=== PATIENT | male | born 1955 | race Caucasian/White ===

== ENCOUNTER 2019-09-04 09:06 | Day surgery (SDC) | payer MEDICARE ==
--- NOTE | 2019-09-03 14:02 | HP ---
HISTORY OF PRESENT ILLNESS: He is scheduled for an outpatient bronchoscopy tomorrow morning at 10 o'clock. A 64-year-old gentleman, 3 pack a day smoker for 40 years, quit smoking in 2014. He was diagnosed to have a malignant lymphoma in 2011, received chemotherapy with Dr. Ybrara, was in remission. About 2 months ago, started coughing up some blood. He went to a local clinic, was given a course of ProAir, albuterol neb treatments, Tessalon Perles, and dextromethorphan cough syrup. He then went to the ER with ongoing 10 [address] of [address]. [address] chest reveals left supra/infrahilar mass and left lower lobe atelectasis. His says he has not lost any weight. On a good day, he can walk a couple of hundreds feet without getting markedly short of breath. He sees a cost controller in [place], who told him he had COPD and asthma. PAST MEDICAL HISTORY: COPD, former smoker, malignant lymphoma under remission, COPD. PAST SURGICAL HISTORY: Hernia in 1967, tonsils in 1973, biopsy lymph node in 2011, chemo port in 2011, colonoscopy, laparoscopic surgery in 2019. ALLERGIES: NONE. HABITS: Tobacco, a former smoker. Alcohol, very minimal. REVIEW OF SYSTEMS: Otherwise unremarkable. 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 PHYSICAL EXAMINATION: VITAL SIGNS: Saturations 90% on room air, pulse 90, respirations 18, and blood pressure 130/80. No clubbing. CHEST: Decreased breath sounds in left lung. There is no wheezing or crackles. CARDIAC: Normal S1 and S2. No gallops. ABDOMEN: Soft. LABORATORY DATA:_ unremarkable. IMAGING STUDIES: I reviewed his CT from [facility] 2.7 x 3.3 x 3.3 left infrahilar mass and associated atelectasis. Left hilar adenopathy, mediastinal adenopathy. IMPRESSION AND PLAN: 1. Left lower lung mass, rule out bronchogenic carcinoma. 2. History of lymphoma. 3. Chronic obstructive pulmonary disease. A diagnostic will be bronchoscopy performed. Further recommendation after above. Job ID: [id number] MTDD
[2019-09-03 14:12] VITALS: BMI 28.5
[2019-09-04] MEDS ORDERED: Midazolam HCl 2 mg/2 ml Vial ONE ×2 (09:59→10:40)
[2019-09-04] MEDS ORDERED: Fentanyl 100 MCG/2 ML VIAL ONE ×2 (09:59→10:40)
[2019-09-04] MEDS ORDERED: Lidocaine 1% (PF) 30 ML VIAL ONE ×2 (10:07→10:15)
[2019-09-04] MEDS ORDERED: Lidocaine 2% PF 5 ML VIAL ONE (11:10)
[2019-09-04] MEDS ORDERED: Benzocaine 20% Spray 60 ML CAN ONE (11:19)
--- NOTE | 2019-09-05 09:06 | OP ---
DATE OF PROCEDURE: 09/04/2019 PROCEDURE PERFORMED: Bronchoscopy with biopsy. INDICATION: Left lower lung mass, rule out bronchogenic carcinoma. POSTBRONCHOSCOPY DIAGNOSIS: Left lower lung mass, rule out bronchogenic carcinoma. DESCRIPTION OF PROCEDURE: After informed consent, the patient received 4 mL of 4% lidocaine and DuoNeb prior to the procedure. The right nostril was prepped with 1% lidocaine jelly. During the procedure, he received a total of 3 of IV Versed and 75 mcg of IV fentanyl. The flexible Olympus video bronchoscope was then passed by the right nostril. Pharynx, hypopharynx, and vocal cord visualized which were unremarkable. Entering the trachea, this was normal. Ailyn was sharp. Right lung inspected initially. Right upper and right middle lobe, no endobronchial obstruction, blood, or pus. The left lung was inspected. After left upper lung was normal, left lower lobe, the bronchus was nodular friable. The right lower lobe bronchus, particularly the posterior segment was completely occluded with nodular friable mucosa. The apical and lateral segments were visualized. Area was nodular friable and bled to touch. This area was lavaged with normal saline thereafter. Brushings and biopsies from the mass were done multiple times. There was some brisk bleeding, which was controlled with instillation of epinephrine 1:[id number] of 10 mL. The biopsy was sent for histopathology. Brushing was sent for cytology. Washings were sent for cytology. The patient tolerated the procedure well. BRIEF DISCHARGE NOTE: The patient tolerated the procedure well. Results will be available to the patient and family. Further recommendation as above. Job ID: [id number]
== END 2019-09-04 12:25 | disposition home or self-care (01) ==
LOC: SDC 09:06
PROVIDERS: ATTEND Internal Medicine Pulmonary Disease
PROC: 0BBB8ZX Excision of Left Lower Lobe Bronchus, Via Natural or Artificial Opening Endoscopic, Diagnostic (ICD-10-PCS; principal; 2019-09-04)
DX: C34.32 Malignant neoplasm of lower lobe, left bronchus or lung (principal); J44.9 Chronic obstructive pulmonary disease, unspecified; Z87.891 Personal history of nicotine dependence
CPT/HCPCS: 88104; 88112; 88305; 88312; 88313; 88341; 88342; 99152; 99153; J2001; J2250; J3010; J7620

== ENCOUNTER 2019-09-06 11:07 | Outpatient (CLI) | payer MEDICARE ==
--- NOTE | 2019-09-07 10:12 | PET ---
Radionucleotide PET scan with CT attenuation correction HISTORY: Left lower lobe lung cancer. Remote history of lymphoma. FINDINGS: Physiologic uptake of radiotracer throughout the enteric system and along each urinary trac t. Left infrahilar mass and associated left hilar adenopathy show increased uptake maximum SUV 18.9. Abnormal precarinal lymph nodes maximum SUV 22.1. Subcarinal lymph nodes 21.0. Slightly enlarged right hilar lymph node 7.4. Uptake associated with a nonenlarged right axillary is nonhypermetabolic at 1.6. Small focus of increased uptake at the inferior aspect of the left scapular body 3.7. Small focus at the posterior aspect of the right iliac bone 3.2. Focal area of abnormality at the right inferior margin of the L1 vertebral body 8.5. Heterogeneous uptake noted within the right liver lobe without focal abnormality reliably demonstrate d Nondiagnostic CT attenuation correction images show suture row of the rectum. Calcification throughou t the arterial structures. IMPRESSION: Hypermetabolic left infrahilar lung mass with neoplastic involvement of mediastinal lymph nodes including the right hilum. Osseous metastatic foci of the left scapula, L1 vertebra, and right iliac bone. Atherosclerosis.
== END 2019-09-06 11:08 | disposition home or self-care (01) ==
LOC: PET 11:07
PROVIDERS: ATTEND Internal Medicine Hematology & Oncology
DX: C34.32 Malignant neoplasm of lower lobe, left bronchus or lung (principal); C77.1 Secondary and unspecified malignant neoplasm of intrathoracic lymph nodes; C79.51 Secondary malignant neoplasm of bone; I70.90 Unspecified atherosclerosis
CPT/HCPCS: 78815; A9552

== ENCOUNTER 2019-09-18 09:50 | Outpatient (CLI) | payer MEDICARE ==
--- NOTE | 2019-09-18 10:45 | MRI ---
Brain MRI with and without contrast: 09/18/2019 COMPARISON: None HISTORY: Lung cancer, headaches, assess for metastatic disease TECHNIQUE: Multiplanar multisequence MR imaging of the brain with and without contrast FINDINGS: The diffusion weighted imaging demonstrates no evidence for acute infarction and the axial gradient echo imaging demonstrates no evidence for intracranial hemorrhage. There are multiple scattered subcentimeter foci of increased T2 and FLAIR signal within the deep and subcortical white matter, evidence of small vessel disease. The imaged paranasal sinuses and mastoid air cells demonstrate normal signal intensity on T2-weighted imaging. Arterial flow voids appear patent at the axial level of the skull base. Regional bone marrow signal intensity appears within normal limits. Postcontrast imaging demonstrates no abnormal enhancement within the brain parenchyma. IMPRESSION: No MR evidence for intracranial metastatic disease.
== END 2019-09-18 09:51 | disposition home or self-care (01) ==
LOC: MRI 09:50
PROVIDERS: ATTEND Radiology Radiation Oncology
DX: C34.90 Malignant neoplasm of unspecified part of unspecified bronchus or lung (principal); C79.51 Secondary malignant neoplasm of bone; R51 Headache
CPT/HCPCS: 70553

== ENCOUNTER 2019-09-21 07:13 | Day surgery (SDC) | payer MEDICARE ==
[2019-09-20 16:03] VITALS: BMI 27.5
[2019-09-21] MEDS ORDERED: Midazolam HCl 2 mg/2 ml Vial ONE (07:33)
[2019-09-21] MEDS ORDERED: Fentanyl 100 MCG/2 ML VIAL ONE (07:33)
[2019-09-21] MEDS ORDERED: Bupivacaine HCl 0.5%/Epinephrine 1:200,000/PF 30 ml Vial ONE (07:37)
[2019-09-21] MEDS ORDERED: Lidocaine 2% PF 5 ML VIAL ONE (07:37)
[2019-09-21 07:52] LABS: #Eosinphils 0.2 thou/uL (0.0-0.7); #Lymphocytes 1.7 thou/uL (1.20-3.40); #Monocytes 0.7 thou/uL (0.11-0.59); #Neutrophils 9.7 thou/uL (1.40-6.50); %Basophils 0.2 % (0.0-1.0); %Eosinophils 1.3 % (0.0-10.0); %Monocytes 5.4 % (0.0-10.0); %Neutrophils 79.1 % (42.0-75.0); Hemoglobin 14.2 g/dL (14.0-18.0); Mean Corpuscular HGB CONC 32.6 g/dL (32.0-36.0); Mean Corpuscular Hemoglobin 29.5 pg (27.0-31.0); Mean Corpuscular Volume 90.5 fL (78.0-98.0); Mean Platelet Volume 8.9 fL (7.4-10.4); Platelet Count 273 thou/uL (130-400); RBC Distribution Width 12.1 % (11.5-14.5); Red Blood Cell (RBC) Count 4.81 mill/uL (4.70-6.10); White Blood Cell (WBC) Count 12.3 thou/uL (4.8-10.8)
[2019-09-21 08:04] LABS: Anion Gap 12 mmol/L (10-20); BUN (Urea Nitrogen) 11 mg/dL (8.4-25.7); Calc. Creatinine Clearance 117 mL/min (70-130); Calcium 9.8 mg/dL (7.8-10.44); Carbon Dioxide 24 mmol/L (23-31); Chloride 104 mmol/L (98-107); Estimated GFR-MDRD Greater than 90; Glucose 120 mg/dL (80-115); Potassium 4.3 mmol/L (3.5-5.1); Sodium 136 mmol/L (136-145)
[2019-09-21] MEDS ORDERED: Lidocaine 2% PF 100 mg/5 ml Syringe ONE (09:04)
[2019-09-21] MEDS ORDERED: Esmolol 100 MG/10 ML VIAL ONE (09:10)
[2019-09-21] MEDS ORDERED: Metoprolol Tartrate 5 MG/5 ML VIAL ONE (09:45)
--- NOTE | 2019-09-21 10:00 | RAD ---
XR Chest 1 View Portable HISTORY: New onset atrial fibrillation. Mediport placement COMPARISON: 09/06/2012 FINDINGS: There is a left subclavian Port-A-Cath with tip in the projection of the SVC. The heart siz e is normal. The lungs are well expanded without focal areas of consolidation, pneumothorax or pleural effusions. IMPRESSION: No radiographic evidence of acute cardiopulmonary process.
--- NOTE | 2019-09-21 12:04 | OP ---
DATE OF PROCEDURE: 09/21/2019 PREOPERATIVE DIAGNOSES: Metastatic squamous cell carcinoma, left lung and need of MediPort for antineoplastic chemotherapy access. POSTOPERATIVE DIAGNOSES: Metastatic squamous cell carcinoma, left lung and need of MediPort for antineoplastic chemotherapy access. PROCEDURE PERFORMED: Left subclavian vein low-profile PowerPort MediPort, fluoroscopy use. ANESTHESIA: General LMA, local 0.5% Marcaine with epinephrine 30 mL mixed with 2% Xylocaine 10 mL, 10 mL mixture used. DESCRIPTION OF PROCEDURE: The patient was taken to the operating room where under general LMA anesthesia, left chest and neck were prepared with ChloraPrep and draped in routine fashion. Local anesthetic was infiltrated in the skin and subcutaneous tissue about the operative site, trocar catheter cannulated the subclavian vein in infraclavicular approach. The J-wire threaded, trocar catheter was removed. Skin site was enlarged sharply, carried out skin and subcutaneous tissue and subcutaneous pocket created with blunt and sharp dissection to accommodate the MediPort. Dilator and Peel-Away sheath placed over the J-wire in superior vena cava and dilator and J-wire were removed. Catheter was placed over the Peel-Away sheath. Peel-Away sheath was removed. Fluoroscopically, the catheter tip was placed optimally in the superior vena cava, tailored to length, connected to the MediPort, placed in the subcutaneous pocket, and secured with 2 interrupted suture of 3-0 Prolene. Subcutaneous tissue was approximated with 3-0 Monocryl, skin with subdermal 4-0 Monocryl, and [place] glue applied. MediPort accessed with a Roman needle, aspirated blood, and then flushed with heparinized saline solution. Fluoroscopic images revealed good MediPort placement. Job ID: [id number]
--- NOTE | 2019-09-24 07:16 | HP ---
HISTORY OF PRESENT ILLNESS: Sabino Salinas is a 64-year-old male patient, recently diagnosed with metastatic left lung cancer, squamous cell carcinoma, followed by Dr. Ybarra. I have been asked to see him for placement of a MediPort. I placed a right subclavian MediPort in 2011 for lymphoma. He quit smoking in 2014. Plan is a left subclavian vein MediPort as he uses a shotgun occasionally and does not want it on his right side. ALLERGIES: NONE. TOBACCO CESSATION 2014. ALCOHOL RARELY. MEDICATIONS: Ventolin inhalers, promethazine, Tessalon Perles, Tylenol, and ibuprofen p.r.n. ALLERGIES: NONE. PAST SURGICAL HISTORY: Stage IV diffuse B-cell lymphoma treated in 2011 with right subclavian vein MediPort, subsequently removed. Left lung cancer, bypass surgeries, hernia repair, tonsillectomy. MediPort in 2011, right subclavian and subsequently removed in the office. Lymph node biopsy, colon resection in the past 09/03/2019. LABORATORY DATA: White count 8.2, hemoglobin 14, platelet 259,000. PAST MEDICAL HISTORY: As noted above plus urolithiasis. REVIEW OF SYSTEMS: Ten-point noncontributory. PHYSICAL EXAMINATION: VITAL SIGNS: Weight 203 pounds, height 6 foot, 27 BMI, blood pressure 110/71, pulse 97, temperature 97.2 degrees. HEAD, EARS, EYES, NOSE AND THROAT: Unremarkable. LUNGS: Clear to auscultation. No wheezing, although occasional coarse cough. CARDIAC: Regular rate and rhythm. ABDOMEN: Soft and nontender. EXTREMITIES: Unremarkable. ASSESSMENT AND PLAN: Left lung cancer, metastatic, scapula and spine. PLAN: Placement of a low-profile MediPort in the left subclavian vein outpatient under fluoroscopy. No ultrasound. He understands risks and benefits, consents. Job ID: [id number]
--- NOTE | 2019-09-25 10:28 | EKG ---
Test Reason : PREOP Blood Pressure : / mmHG Vent. Rate : 088 BPM Atrial Rate : 088 BPM P-R Int : 116 ms QRS Dur : 124 ms QT Int : 400 ms P-R-T Axes : 069 016 022 degrees QTc Int : 484 ms Normal sinus rhythm Right bundle branch block Abnormal ECG Confirmed by REBECA MCCLAIN MD ([id number]) on 09/25/2019 10:27:41 AM Referred By: GOPAL Confirmed By:REBECA MCCLAIN MD
--- NOTE | 2019-09-25 10:29 | EKG ---
Test Reason : POST OP Blood Pressure : / mmHG Vent. Rate : 137 BPM Atrial Rate : 136 BPM P-R Int : 000 ms QRS Dur : 124 ms QT Int : 342 ms P-R-T Axes : 000 028 -06 degrees QTc Int : 516 ms Atrial fibrillation with rapid ventricular response Right bundle branch block Abnormal ECG Confirmed by JOHNY FAULKNER, REBECA ([id number]) on 09/25/2019 10:28:45 AM Referred By: GOPAL Confirmed By:REBECA MCCLAIN MD
== END 2019-09-21 11:10 | disposition home or self-care (01) ==
LOC: SDC 07:13
PROVIDERS: ATTEND Specialist
PROC: 05H633Z Insertion of Infusion Device into Left Subclavian Vein, Percutaneous Approach (ICD-10-PCS; principal; 2019-09-21)
DX: C34.92 Malignant neoplasm of unspecified part of left bronchus or lung (principal); C79.51 Secondary malignant neoplasm of bone; Z87.891 Personal history of nicotine dependence
CPT/HCPCS: 36561; 71045; 80048; 85025; 93005; C1788; 36415; 93010; J0670; J0690; J1642; J2001; J2250; J3010

== ENCOUNTER 2019-10-03 23:21 | Inpatient (IN) | payer MEDICARE ==
--- NOTE | 2019-10-04 00:48 | PDOC.HHP ---
Hospitalist HPI - History of Present Illness L sided chest pain History of Present Illness: Patient is a 64 year old male with PMH COPD, recently diagnosed lung cancer who presents to [facility] for L sided chest pain. About 330pm yesterday, he developed a L sided chest pain and shortness of breath, did not improve with use of ventolin inhaler, self resolved after 5 hours. He reports sweating, describes pain as a constant ache without radiation, was also nauseous at that time. Patient had a stress test about 15 years ago that was reported as normal to patient, no reported history of any heart conditions. He had palpitaitons after anesthesia during port placement, he was told it "looked like" afib but was not given a formal diagnosis. Patient takes only ventolin inhaler PRN and over the counter pain meds, in addition to tessalon and zofran PRN symptoms. Patient reports before lung cancer diagnosis, he rarely had to use his inhaler at home but in last few weeks has needed to use more frequently, now needing q4- 6 hours. Patient was diagnosed with lung cancer 3-4 weeks ago via bronchoscopy, was told was NSCLC/squamous. Dr York is electronics tech and Dr Ybarra if patients oncologist. Patient has already had a port placed and started chemotherapy a week ago. Patient has strong family history of heart disease with father and brother dying of heart conditions. Hospitalist ROS - Review of Systems Constitutional: reports: sweats. denies: fever, chills Eyes: denies: vision change, redness ENT: denies: throat pain, throat swelling Respiratory: reports: cough, shortness of breath, pleuritic pain Cardiovascular: reports: chest pain. denies: palpitations Gastrointestinal: reports: nausea. denies: vomiting, diarrhea Genitourinary: denies: dysuria, frequency Musculoskeletal: denies: neck pain, shoulder pain, arm pain Skin: denies: rash, lesions Neurological: denies: weakness, numbness, incoordination, change in speech, seizures All other systems reviewed; all pertinent +/- noted in HPI/Subj Hospitalist History - Past Medical History Other Medical History: L sided lung cancer lymphoma 2011 (reports cured, Dr Ybarra) COPD - Past Surgical History Other Surgical History: hemicolectomy port placement bronchoscopy tonsils hernia - Family History Other Family History: heart disease in father and brother lung cancer grandfather mother DM - Social History Smoking Status: Former smoker (quit 2014) Alcohol: reports: None - Exam General Appearance: NAD, awake alert Eye: PERRL, anicteric sclera ENT: normocephalic atraumatic, no oropharyngeal lesions Neck: supple, symmetric, no JVD Heart: RRR, no murmur, no gallops Respiratory: no wheezes, no rales Respiratory - other findings: decreased breath sounds L sided Gastrointestinal: soft, non-tender, non-distended, normal bowel sounds Extremities: no cyanosis, no clubbing, no edema Skin: no lesions, no rashes Neurological: cranial nerve grossly intact, normal sensation to touch, no weakness, no focal deficits, no new deficit Musculoskeletal: normal tone, normal strength Psychiatric: normal affect, normal behavior, A&O x 3 Hospitalist Results - Labs Lab results: results reviewed from outside hospital. troponin 0.33 which is elevated Hospitalist H&P A/P - Problem (1) Chest pain Code(s): R07.9 - CHEST PAIN, UNSPECIFIED Status: Acute Assessment and Plan: pain has qualities that make it difficult to decide if this pain is primarily pulmonary or cardaic in nature. lung findings with obstructed broncus would put claudia at high risk for post obstructive pneumonia, however elevated troponin suggests cardiac in nature. will consult relevant specialists to include their input in the decision - admit to floor - consult dr York of pulmonology, Dr Ybarra oncology ([facility]) and Dr Shine of cardiology - trend troponin - empiric abx in case post obstructive pneumonia, will obtain pulmonology consultation tomorrow. vancomycin pharmacy to dose and zosyn ordered (2) Elevated troponin Code(s): R79.89 - OTHER SPECIFIED ABNORMAL FINDINGS OF BLOOD CHEMISTRY Status : Acute Assessment and Plan: perhaps suggest cardiac etiology ofchest pain, trend troponin and consult cardiology in AM (3) Lung cancer Code(s): C34.90 - MALIGNANT NEOPLASM OF UNSP PART OF UNSP BRONCHUS OR LUNG Status: Acute - Plan Plan: started chemotherapy, consult oncology and hold chemotherapy for now
[2019-10-04 01:41] LABS: CKMB 0.7 ng/mL (0-6.6)
[2019-10-04 04:05] VITALS: BMI 26.0
[2019-10-04 04:08] LABS: Critical Call Chem Troponin I RESULT DECREASING
[2019-10-04] MEDS ORDERED: Loperamide HCl 2 MG CAP PO PRN (04:45)
[2019-10-04] MEDS ORDERED: Senokot S 8.6-50 MG TAB PO PRN (04:45)
[2019-10-04] MEDS ORDERED: Ondansetron PF 4 MG/2 ML Vial IVP PRN (04:45)
[2019-10-04] MEDS ORDERED: Acetaminophen 325 MG TAB PO PRN (04:45)
[2019-10-04] MEDS ORDERED: Bisacodyl 5 MG TAB PO PRN (04:45)
[2019-10-04] MEDS ORDERED: HYDROcodone/Acetaminophen 5/325 mg Tablet PO PRN (04:45)
[2019-10-04] MEDS ORDERED: Benzonatate 100 MG CAP PO PRN (04:45)
[2019-10-04] MEDS ORDERED: Piperacillin/Tazobactam 3.375 GM in Sodium Chloride 0.9% 100 ML IVPB SCH (06:00)
[2019-10-04] MEDS: Piperacillin/Tazobactam 3.375 GM in Sodium Chloride 0.9% 100 ML IVPB SCH ×2 (07:31→12:51)
[2019-10-04 08:01] LABS: Troponin I 0.449 ng/mL (< 0.028)
[2019-10-04] MEDS: Enoxaparin Sodium 40 MG/0.4 ML SYRINGE SC SCH (09:24)
[2019-10-04] MEDS: Famotidine 20 MG TAB PO SCH ×2 (09:24→20:27)
[2019-10-04 11:03] LABS: Critical Call Chem Troponin I RESULT DECREASING; Troponin I 0.388 ng/mL (< 0.028)
--- NOTE | 2019-10-04 12:02 | CON ---
DATE OF CONSULTATION: REASON FOR CONSULT: Lung cancer. HISTORY OF PRESENT ILLNESS: Mr. Salinas is a pleasant 64-year-old gentleman with past medical history of diffuse large B-cell lymphoma, autoimmune hemolytic anemia, and newly diagnosed bronchogenic carcinoma. He started chemotherapy on September 25 for lung cancer. He received Keytruda, carboplatin and Taxol. Yesterday, he began to have some left chest pain. It was more an aching, worse with a deep breath. He started a neb treatment and became diaphoretic, so decision was made to go to the ER for evaluation. [facility] [place]. He had a CBC drawn, which was normal. Troponin was elevated at 0.33. He underwent a CT scan of the chest, which showed no PE. However, his lung mass was decreased in size compared to prior CT. He was transferred to this facility for further workup. Last troponin was 0.449. Cardiology has been consulted. The patient currently denies any chest discomfort. No shortness of breath at this time. PAST MEDICAL HISTORY: 1. History of diffuse large B-cell lymphoma. 2. Autoimmune hemolytic anemia. 3. Left squamous cell carcinoma, lung cancer. 4. Central tremor. PAST SURGICAL HISTORY: 1. Tonsillectomy. 2. Hernia repair. 3. MediPort placement. ALLERGIES: NO KNOWN DRUG ALLERGIES. HOME MEDICATIONS: Zofran, Tessalon Perles, albuterol, ProAir, and Ventolin. FAMILY HISTORY: Grandfather had lung cancer. There is a history of heart disease. SOCIAL HISTORY: , has 4 children. Lives with his spouse. A 30 pack year history of smoking. No alcohol or illicit drug use. REVIEW OF SYSTEMS: A 10-point review of systems is negative except for noted in HPI. PHYSICAL EXAMINATION: VITAL SIGNS: Temperature is 98.1, pulse is 95, respiratory rate 16, BP is 114/69 and he is 94% on room air. GENERAL: This is well-developed, well-nourished male, in no acute distress. HEENT: Normocephalic, atraumatic. Pupils are equal and reactive to light. NECK: Supple. CV: Regular rate and rhythm. LUNGS: Clear. ABDOMEN: Soft and nontender. Bowel sounds are positive. EXTREMITIES: There is no clubbing, cyanosis or edema. SKIN: No rash. HEMATOLOGICAL: There is no petechiae or purpura. NEUROLOGICAL: Nonfocal. PERTINENT LABS AND X-RAYS: CBC in the ER yesterday showed a white count of 5.3, hemoglobin 13, hematocrit 38.3, platelets 234,000. He has 67% neutrophils, 27% lymphocytes. His PT was 12.8, INR was 1.1, PTT is 33.4. Troponin is 0.33. Sodium is 132, potassium 4.8, chloride 96, CO2 is 26, BUN is 15, creatinine is 0.8. Total protein is 7.7, albumin 3.9, bilirubin is 0.8, AST is 22, ALT is 24, and alkaline phosphatase is 91. ASSESSMENT: 1. Squamous cell carcinoma of the lung, status post cycle 1 of chemotherapy. 2. Chest pain and possible non-ST elevation myocardial infarction. DISCUSSION: The patient is being evaluated by Cardiology. According to the CT scan at [facility], where he was originally scanned, this left lung mass has decreased in size. His chest pain was associated with breathing. It is possible that this is from his mass, although his troponins are elevated. He is due for additional Taxol on Tuesday. We will postpone if necessary. We will follow along with his hospital course and monitor his CBC. Thank you for the consult. Job ID: [id number]
[2019-10-04] MEDS ORDERED: Aspirin 81 mg Enteric Coated Tablet PO SCH (12:30)
--- NOTE | 2019-10-04 12:50 | RAD ---
Exam: Chest one view HISTORY:Chest pain Comparison: 09/21/2019 FINDINGS: Cardiac silhouette:Normal cardiac silhouette Lines and tubes: Stable left-sided Port-A-Cath Aorta: Unremarkable Pulmonary vessels: Normal Costophrenic angles: Clear LUNGS: No masses or consolidation. Pneumothorax: None Osseous abnormalities: None IMPRESSION: No acute cardiopulmonary process.
--- NOTE | 2019-10-04 13:19 | CON ---
DATE OF CONSULTATION: HISTORY OF PRESENT ILLNESS: Sabino Salinas is a 64-year-old white male with history of left lung non-small cell carcinoma. He was having hemoptysis prior to starting chemotherapy, but after 2 rounds, has not had any further episodes of hemoptysis. He presented to [facility] in [place] with chest pressure on the left side of his chest associated with shortness of breath and diaphoresis, but no nausea or vomiting. The patient states that the total duration of the pain was approximately 1 to 1-1/2 hours. He has developed positive cardiac enzymes. He is pain free at the present time. PAST MEDICAL HISTORY: Recently diagnosed left lung cancer - non-small cell. History of lymphoma. He denies any history of hypertension, diabetes, or hypercholesterolemia. PAST SURGICAL HISTORY: Hernia repair, tonsillectomy, lymph node biopsy in 2011 with diagnosis of lymphoma, colonoscopy, and laparoscopic surgery. MEDICATIONS: 1. Albuterol one puff q.4 hours p.r.n. 2. Tessalon Perles 1 to 2 capsules b.i.d. p.r.n. ALLERGIES: NONE. SOCIAL HISTORY: He smoked. He stopped smoking in 2014. He does not drink. FAMILY HISTORY: Father had myocardial infarction. Brother had myocardial infarction, at age 55. PHYSICAL EXAMINATION: VITAL SIGNS: Blood pressure 126/78 and pulse 78. HEENT: PERRL. NECK: Supple. CHEST: Clear. CARDIAC: S1 and S2 normal without any S3, S4, or murmurs. ABDOMEN: Normal bowel sounds without tenderness or organomegaly. EXTREMITIES: Revealed no clubbing, cyanosis, or edema. NEUROLOGIC: Grossly intact. SKIN: Warm and dry. LABORATORY DATA: EKG revealed normal sinus rhythm with incomplete right bundle-branch block. Hemoglobin 14.2, hematocrit 43.5, white count 12,300, platelets 273,000. Sodium 136, potassium 4.2, chloride 99, carbon dioxide 26, BUN 14, creatinine 0.73. Alkaline phosphatase 129 and LDH 275. TSH is normal. Troponin I is up to 0.449. IMPRESSION: 1. [id number] myocardial infarction. 2. Unknown cholesterol status. 3. Former smoker. 4. Non-small cell carcinoma of the left lung. He had hemoptysis with this, but he states that he has not had any further episodes for 1 week. He has received 2 rounds of chemotherapy. 5. Positive family history. 6. History of lymphoma. PLAN: Fasting lipid profile will be obtained. The patient will be started on aspirin 81 mg q.a.m. and low-dose beta isabela. Consideration should be given to cardiac catheterization; however, I am somewhat concerned about his recent history of hemoptysis and the need for anticoagulation if stent placement is required. We will continue to try to discuss this with Dr. Ybarra. I did discuss with the patient and his the risk of catheterization - myocardial infarction, dye reaction, vascular injury, CVA, transfusion, limb loss, renal loss, etc. We also discussed additional risk of stent placement of myocardial infarction, emergent CABG, restenosis, stent thrombosis, vessel perforation, etc. With history of hemoptysis and the need for ongoing chemotherapy, I would only place a bare- metal stent if needed. However, if there is concern for continued hemoptysis, then catheterization may need to be significantly delayed. Job ID: [id number] MTDD
[2019-10-04] MEDS ORDERED: guaiFENesin/Codeine Phosphate 200 mg/20 mg 10 ml UD Cup PO PRN (15:09)
[2019-10-04] MEDS ORDERED: Bisacodyl 5 MG TAB PO SCH (15:15)
--- NOTE | 2019-10-04 16:58 | CON ---
DATE OF CONSULTATION: HISTORY OF PRESENT ILLNESS: A 64-year-old male, seen by my associate, Dr. York, who diagnosed him with a left hilar lung cancer. He started therapy for this. He presented with chest discomfort. Subsequently, he was admitted to the hospital. He had no chest pain when I saw him today. He had abnormal cardiac enzymes. Cardiology has been consulted. He has no history of pre-existing COPD or hospitalizations for shortness of breath. He did have a lymphoma diagnosed in 2011. He is still in remission. PAST MEDICAL HISTORY: Hypertension, diabetes, and lipid disorder. PAST SURGICAL HISTORY: Remarkable for herniorrhaphy, tonsillectomy, and laparoscopic colon surgery. SOCIAL HISTORY: He quit smoking in 2014. He does not drink. ALLERGIES: HE HAS NO DRUG ALLERGIES. MEDICATIONS: Prior to admission, he had an albuterol inhaler and Tessalon Perles. FAMILY HISTORY: Positive for vascular disease. PHYSICAL EXAMINATION: VITAL SIGNS: He is afebrile, heart rate is 88, respiratory rate is 16, oximetry is 95% on room air, and blood pressure 114/69. HEAD AND NECK: Unremarkable. LUNGS: Clear. HEART: Regular rhythm, S1 and S2 are normal. No murmur. ABDOMEN: Soft and nontender. No masses. EXTREMITIES: Without clubbing, cyanosis, or edema. NEUROLOGIC: Nonfocal. IMPRESSION: Chest discomfort, felt to possibly be of cardiac origin. His troponins have been fairly consistent between 0.47 and 0.39 today. They have not risen over 1. Did have some hemoptysis, which I am sure is related to his lung cancer. There are concerns about anticoagulate him. I believe the plan is medical management. I will start him on nebulizer treatments and cough suppression since his main complaint now is just a cough. I will notify Dr. York of his presence in the morning. Job ID: [id number]
[2019-10-04] MEDS: guaiFENesin/Codeine Phosphate 200 mg/20 mg 10 ml UD Cup PO SCH ×2 (17:30→23:53)
[2019-10-04 18:48] LABS: Critical Call Chem Troponin I RESULT DECREASING; Troponin I 0.333 ng/mL (< 0.028)
[2019-10-04] MEDS: Amoxicillin/Potassium Clav 875 MG TAB PO SCH (20:27)
[2019-10-04] MEDS: Vancomycin HCl 1.25 GM in Sodium Chloride 0.9% 250 ML 250 ML IVPB SCH (20:27)
[2019-10-04] MEDS: Metoprolol Tartrate 25 MG TAB PO SCH (20:27)
--- NOTE | 2019-10-04 20:45 | PDOC.EVN ---
Event Note - Event Note Event Note: Patient seen examined. Doing ok. Heart regular. Lungs generally clear. Trops are elevated, but not following a physiologic upward trend. Possible the tumor is causing the chest pain. Patient seems to think so. Not significantly different than discomfort he has had. Consults with Cards, Pulm and Onc pending.
[2019-10-04] MEDS ORDERED: Diltiazem HCl 125 MG, Admixture Fee 1 EACH in Sodium Chloride 0.9% 100 ML IVPB SCH (21:30)
[2019-10-05 01:58] LABS: #Eosinphils 0.1 thou/uL (0.0-0.7); #Lymphocytes 1.6 thou/uL (1.20-3.40); #Monocytes 0.1 thou/uL (0.11-0.59); %Basophils 0.2 % (0.0-1.0); %Eosinophils 1.4 % (0.0-10.0); %Lymphocytes 32.9 % (21.0-51.0); %Monocytes 1.7 % (0.0-10.0); %Neutrophils 63.8 % (42.0-75.0); Hemoglobin 11.7 g/dL (14.0-18.0); Mean Corpuscular Hemoglobin 30.4 pg (27.0-31.0); Mean Corpuscular Volume 89.4 fL (78.0-98.0); Mean Platelet Volume 8.7 fL (7.4-10.4); Platelet Count 171 thou/uL (130-400); RBC Distribution Width 12.6 % (11.5-14.5); Red Blood Cell (RBC) Count 3.86 mill/uL (4.70-6.10); White Blood Cell (WBC) Count 4.7 thou/uL (4.8-10.8)
[2019-10-05 02:26] LABS: Anion Gap 10 mmol/L (10-20); BUN (Urea Nitrogen) 8 mg/dL (8.4-25.7); Calc. Creatinine Clearance 124 mL/min (70-130); Calcium 8.9 mg/dL (7.8-10.44); Carbon Dioxide 25 mmol/L (23-31); Chloride 107 mmol/L (98-107); Estimated GFR-MDRD Greater than 90; Glucose 98 mg/dL (80-115); Potassium 4.4 mmol/L (3.5-5.1); Sodium 138 mmol/L (136-145)
[2019-10-05 02:30] LABS: Troponin I 0.304 ng/mL (< 0.028)
[2019-10-05] MEDS: guaiFENesin/Codeine Phosphate 200 mg/20 mg 10 ml UD Cup PO SCH ×3 (05:47→16:57)
[2019-10-05] MEDS: Vancomycin HCl 1.25 GM in Sodium Chloride 0.9% 250 ML 250 ML IVPB SCH (08:32)
[2019-10-05] MEDS: Aspirin 81 mg Enteric Coated Tablet PO SCH (08:47)
[2019-10-05] MEDS: Polyethylene Glycol 3350 17 GM Packet PO SCH (08:47)
[2019-10-05] MEDS: Amoxicillin/Potassium Clav 875 MG TAB PO SCH ×2 (08:47→20:56)
[2019-10-05] MEDS: Enoxaparin Sodium 40 MG/0.4 ML SYRINGE SC SCH (08:47)
[2019-10-05] MEDS: Famotidine 20 MG TAB PO SCH ×2 (08:47→20:56)
[2019-10-05] MEDS: Metoprolol Tartrate 25 MG TAB PO SCH ×2 (08:48→20:56)
--- NOTE | 2019-10-05 09:33 | PRG ---
DATE OF SERVICE: 10/05/2019 SUBJECTIVE: This morning, he is doing better, less pain, less shortness of breath. His x-ray shows much improvement previously compared. He has a non-small cell lung cancer in the left lung. OBJECTIVE: VITAL SIGNS: Temperature 98, pulse 84, respirations 18, saturations 90% on room air. CHEST: No wheezing or crackles. CARDIAC: Atrial fibrillation. ABDOMEN: Soft. LABORATORY DATA: Labs unremarkable. ASSESSMENT: 1. Chest pain, probably musculoskeletal. 2. Supraventricular tachycardia. 3. Chronic obstructive pulmonary disease. 4. Tobacco abuse. 5. Non-small cell lung cancer. PLAN: Discontinue vancomycin. Continue Cardizem. Hopefully, once his cardiac rhythm is stabilized, he can be discharged home. Follow up with his oncologist. Incidentally, his EF was normal. Job ID: [id number]
[2019-10-05] MEDS ORDERED: Metoprolol Tartrate 25 MG TAB PO SCH (14:30)
--- NOTE | 2019-10-05 15:48 | PDOC.MOPN ---
Interval History: denies chest pain, palpitations, hemoptysis. - Vital Signs Vital Signs: Vital Signs (12 hours) Temp Pulse Resp BP Pulse Ox 10/05/19 15:00 98.3 F 84 16 112/65 94 L 10/05/19 13:20 77 16 94 L 10/05/19 11:10 97.5 F L 80 16 121/65 95 10/05/19 10:35 86 16 95 10/05/19 08:03 84 18 95 10/05/19 07:38 98.5 F 74 16 106/70 95 10/05/19 03:54 98.4 F 70 18 108/61 92 L Weight Weight 191 lb 1.6 oz - Physical Exam General: Alert, Oriented x3, No acute distress HEENT: Atraumatic, PERRLA, EOMI, Mucous membr. moist/pink Lungs: Clear to auscultation, Normal air movement Cardiovascular: Regular rate, Normal S1, Normal S2, No murmurs, Gallops, Rubs Abdomen: Normal bowel sounds, Soft, No tenderness, No hepatospenomegaly, No masses Extremities: No clubbing, No cyanosis, No edema, Normal pulses, No tenderness/ swelling Skin: No rashes, No breakdown, No significant lesion Neurological: Normal gait, Normal speech, Strength at 5/5 X4 ext, Normal tone, Sensation intact, Cranial nerves 3-12 NL, Reflexes 2+ Psych/Mental Status: Mental status NL, Mood NL - Labs Result Diagrams: 10/05/19 01:50 10/05/19 01:50 Lab results: Laboratory Results - last 24 hr 10/05/19 01:50: Troponin I 0.304 H* 10/05/19 01:50: WBC 4.7 L, RBC 3.86 L, Hgb 11.7 L, Hct 34.5 L, MCV 89.4, MCH 30.4, MCHC 34.0, RDW 12.6, Plt Count 171, MPV 8.7, Neutrophils % 63.8, Lymphocytes % 32.9, Monocytes % 1.7, Eosinophils % 1.4, Basophils % 0.2, Neutrophils # 3.0, Lymphocytes # 1.6, Monocytes # 0.1 L, Eosinophils # 0.1, Basophils # 0.0 10/05/19 01:50: Sodium 138, Potassium 4.4, Chloride 107, Carbon Dioxide 25, Anion Gap 10, BUN 8 L, Creatinine 0.72, Estimated GFR (MDRD) Greater than 90, Glucose 98, Calcium 8.9 10/04/19 18:06: Troponin I 0.333 H* Status: lab reviewed by me A/P - Problem (1) Lung cancer Current Visit: Yes Code(s): C34.90 - MALIGNANT NEOPLASM OF UNSP PART OF UNSP BRONCHUS OR LUNG Status: Acute - Plan Plan: Discussed with Dr. Shine, agree to defer cardiac cath due to issues with hemoptysis. Plan to continue chemoimmunotherapy treatment next week. OK to dc from my perspective.
--- NOTE | 2019-10-05 16:31 | PDOC.HOSPP ---
- Subjective Subjective: Doing ok. No significant pain. Still has some cough. - Objective Vital Signs & Weight: Vital Signs (12 hours) Temp Pulse Resp BP Pulse Ox 10/05/19 15:00 98.3 F 84 16 112/65 94 L 10/05/19 13:20 77 16 94 L 10/05/19 11:10 97.5 F L 80 16 121/65 95 10/05/19 10:35 86 16 95 10/05/19 08:03 84 18 95 10/05/19 07:38 98.5 F 74 16 106/70 95 Weight Weight 191 lb 1.6 oz I&O: 10/04/19 10/05/19 10/06/19 06:59 06:59 06:59 Intake Total 1200 1098.3 Output Total 1100 Balance 1200 -1.7 Result Diagrams: 10/05/19 01:50 10/05/19 01:50 Hospitalist ROS - Medication Medications: Active Medications Generic Name Dose Route Start Last Admin Trade Name Freq PRN Reason Stop Dose Admin Albuterol/Ipratropium 3 ml 10/05/19 13:00 10/05/19 13:20 Duoneb NEB 3 ml [id number] JOVI Administration Amoxicillin/Clavulanate Potassium 875 mg 10/04/19 21:00 10/05/19 08:47 Augmentin PO 875 mg Q12HR JOVI Administration Aspirin 81 mg 10/05/19 09:00 10/05/19 08:47 Ecotrin PO 81 mg DAILY JOVI Administration Benzonatate 100 mg 10/04/19 04:45 10/04/19 09:24 Tessalon PO 100 mg TID PRN Administration Cough Enoxaparin Sodium 40 mg 10/04/19 09:00 10/05/19 08:47 Lovenox SC 40 mg 0900 JOVI Administration Famotidine 20 mg 10/04/19 09:00 10/05/19 08:47 Pepcid PO 20 mg BID JOVI Administration Guaifenesin/Codeine Phosphate 10 ml 10/04/19 18:00 10/05/19 11:12 Robitussin Ac PO 10 ml Q6HR JOVI Administration Diltiazem HCl 125 mg/ 125 mls @ 5 mls/hr 10/04/19 21:30 10/04/19 21:57 Miscellaneous Medication 1 IVPB 125 mls each/ Sodium Chloride INF JOVI Administration Protocol Metoprolol Tartrate 12.5 mg 10/05/19 14:30 10/05/19 15:05 Lopressor PO 10/05/19 16:30 12.5 mg NOW JOVI Administration Ondansetron HCl 4 mg 10/04/19 04:45 10/04/19 20:30 Zofran IVP 4 mg Q6H PRN Administration Nausea/Vomiting Polyethylene Glycol 17 gm 10/05/19 09:00 10/05/19 08:47 Miralax PO 17 gm DAILY JOVI Administration Sodium Chloride 10 ml 10/04/19 09:00 10/05/19 10:23 Flush - Normal Saline IVF Not Given Q12HR JOVI - Exam General Appearance: NAD, awake alert Heart: RRR, no murmur, no gallops, no rubs, normal peripheral pulses Respiratory: CTAB, no wheezes, no rales, no ronchi, normal chest expansion, no tachypnea, normal percussion Gastrointestinal: soft, non-tender, non-distended, normal bowel sounds, no palpable masses, no hepatomegaly, no splenomegaly, no bruit Extremities: no cyanosis, no clubbing, no edema Skin: normal turgor, no lesions, no rashes Musculoskeletal: normal tone, normal strength, no muscle wasting Psychiatric: normal affect, normal behavior, A&O x 3 Hosp A/P (1) Atrial fibrillation Code(s): I48.91 - UNSPECIFIED ATRIAL FIBRILLATION Status: Acute (2) Chest pain Code(s): R07.9 - CHEST PAIN, UNSPECIFIED Status: Acute (3) Elevated troponin Code(s): R79.89 - OTHER SPECIFIED ABNORMAL FINDINGS OF BLOOD CHEMISTRY Status : Acute (4) Lung cancer Code(s): C34.90 - MALIGNANT NEOPLASM OF UNSP PART OF UNSP BRONCHUS OR LUNG Status: Acute - Plan Discussed with Cardiology. Had NSTEMI, but cath deferred due to hemoptysis that is related to the lung cancer. Had episode of asymptomatic afib last night, but anticoagulation deferred due to hemoptysis. Will continue with the beta isabela and monitor rhythm over night. May be able to DC tomorrow with po abx, beta isabela.
[2019-10-06] MEDS: guaiFENesin/Codeine Phosphate 200 mg/20 mg 10 ml UD Cup PO SCH ×5 (00:06→23:38)
[2019-10-06] MEDS: Diltiazem HCl 125 MG, Admixture Fee 1 EACH in Sodium Chloride 0.9% 100 ML IVPB SCH ×2 (04:06→16:40)
[2019-10-06] MEDS: Aspirin 81 mg Enteric Coated Tablet PO SCH (08:59)
[2019-10-06] MEDS: Amoxicillin/Potassium Clav 875 MG TAB PO SCH ×2 (08:59→20:26)
[2019-10-06] MEDS: Polyethylene Glycol 3350 17 GM Packet PO SCH (09:00)
[2019-10-06] MEDS: Famotidine 20 MG TAB PO SCH ×2 (09:00→20:26)
[2019-10-06] MEDS: Enoxaparin Sodium 40 MG/0.4 ML SYRINGE SC SCH (09:00)
[2019-10-06] MEDS: Metoprolol Tartrate 25 MG TAB PO SCH ×2 (09:00→20:26)
[2019-10-06] MEDS ORDERED: Digoxin 0.5 MG/2 ML AMP SLOW IVP SCH (14:30)
--- NOTE | 2019-10-06 14:45 | PDOC.HOSPP ---
- Subjective Encounter Date: 10/06/19 Encounter Time: 14:35 Subjective: f/u for A-fib RVR with restarting Cardizem gtt this am. Remains RVR on Cardizem 10mg/h IV. States feels ok overall with improvement in dyspnea. - Objective Vital Signs & Weight: Vital Signs (12 hours) Temp Pulse Resp BP Pulse Ox 10/06/19 12:47 80 16 96 10/06/19 12:20 98 F 97 18 103/63 97 10/06/19 07:56 97.4 F L 128 H 18 111/65 96 10/06/19 07:55 96 10/06/19 07:27 71 16 95 10/06/19 03:21 99.1 F 101 H 18 111/69 97 Weight Weight 190 lb 4.8 oz I&O: 10/05/19 10/06/19 10/07/19 06:59 06:59 06:59 Intake Total 1200 2778.3 Output Total 1700 Balance 1200 1078.3 Result Diagrams: 10/05/19 01:50 10/05/19 01:50 Additional Labs: Laboratory Tests 09/25/19 12:37 TSH 3rd Generation 0.7638 EKG Reviewed by me: Yes (Tele - A-fib RVR in 120's) Hospitalist ROS - Medication Medications: Active Medications Generic Name Dose Route Start Last Admin Trade Name Freq PRN Reason Stop Dose Admin Albuterol/Ipratropium 3 ml 10/05/19 13:00 10/06/19 12:47 Duoneb NEB 3 ml [id number] JOVI Administration Amoxicillin/Clavulanate Potassium 875 mg 10/04/19 21:00 10/06/19 08:59 Augmentin PO 875 mg Q12HR JOVI Administration Aspirin 81 mg 10/05/19 09:00 10/06/19 08:59 Ecotrin PO 81 mg DAILY JOVI Administration Benzonatate 100 mg 10/04/19 04:45 10/04/19 09:24 Tessalon PO 100 mg TID PRN Administration Cough Enoxaparin Sodium 40 mg 10/04/19 09:00 10/06/19 09:00 Lovenox SC 40 mg 0900 JOVI Administration Famotidine 20 mg 10/04/19 09:00 10/06/19 09:00 Pepcid PO 20 mg BID JOVI Administration Guaifenesin/Codeine Phosphate 10 ml 10/04/19 18:00 10/06/19 12:22 Robitussin Ac PO 10 ml Q6HR JOVI Administration Diltiazem HCl 125 mg/ 125 mls @ 10 mls/hr 10/06/19 04:00 10/06/19 04:06 Miscellaneous Medication 1 IVPB 125 mls each/ Sodium Chloride INF JOVI Administration Protocol Metoprolol Tartrate 25 mg 10/05/19 21:00 10/06/19 09:00 Lopressor PO 25 mg BID JOVI Administration Ondansetron HCl 4 mg 10/04/19 04:45 10/04/19 20:30 Zofran IVP 4 mg Q6H PRN Administration Nausea/Vomiting Polyethylene Glycol 17 gm 10/05/19 09:00 10/06/19 09:00 Miralax PO 17 gm DAILY JOVI Administration Sodium Chloride 10 ml 10/04/19 09:00 10/06/19 09:01 Flush - Normal Saline IVF 10 ml Q12HR JOVI Administration - Exam General Appearance: NAD, awake alert Eye: PERRL, anicteric sclera ENT: normocephalic atraumatic, no oropharyngeal lesions Neck: supple, symmetric, no JVD, no thyromegaly Heart: no rubs, normal peripheral pulses, irregular Heart - other findings: tachycardic Respiratory - other findings: diminished in bases, occ wheezes Gastrointestinal: soft, non-tender, non-distended, normal bowel sounds, no palpable masses Extremities: no cyanosis, no clubbing, no edema Skin: normal turgor, no lesions Neurological: cranial nerve grossly intact, no new deficit Musculoskeletal: normal tone, normal strength Psychiatric: normal affect, A&O x 3 Hosp A/P (1) Atrial fibrillation with RVR Code(s): I48.91 - UNSPECIFIED ATRIAL FIBRILLATION Status: Acute Plan: RVR persists, continue Cardizem gtt, Add Digoxin 0.25mg IVP x 1 now, continue Metoprolol, check Mg++ level in am, no anticoagulation due to hemoptysis (2) NSTEMI (non-ST elevated myocardial infarction) Code(s): I21.4 - NON-ST ELEVATION (NSTEMI) MYOCARDIAL INFARCTION Status: Acute Plan: Secondary to demand ischemia in context of A-fib RVR (3) Chest pain Code(s): R07.9 - CHEST PAIN, UNSPECIFIED Status: Acute Plan: Secondary to #1, ASA 81mg daily (4) Lung cancer Code(s): C34.90 - MALIGNANT NEOPLASM OF UNSP PART OF UNSP BRONCHUS OR LUNG Status: Acute Qualifiers: Laterality: left Plan: Currently receiving tx after chemotherapy, follow up as outpt - Plan plan discussed w/ family, social sciences research scientist, respiratory therapy, out of bed/ ambulate, DVT proph w/SCDs Stable currently Add Digoxin 0.25mg IV x 1 Continue Cardizem gtt Continue Metoprolol 25mg BID AM lab: Mg++
--- NOTE | 2019-10-06 18:05 | PDOC.CPN ---
- Subjective Date: 10/06/19 Time: 18:03 Interval history: He is doing better. He converted back to sinus rhythm earlier this afternoon. Continue to cough but no blood. - Review of Systems General: denies: fever/chills, weight/appetite/sleep changes, night sweats, fatigue Respiratory: reports: cough. denies: congestion, shortness of breath, exercise intolerance Cardiovascular: denies: chest pain, palpitation, edema, paroxysmal nocturnal dyspnea, orthopnea Gastrointestinal: denies: nausea, vomiting, diarrhea, constipation, abd pain, GI bleeding Musculoskeletal: denies: pain, tenderness, stiffness, swelling, arthritis/ arthralgias Neurological: denies: numbness, syncope, seizure, weakness - Objective Allergies/Adverse Reactions: Allergies Allergy/AdvReac Type Severity Reaction Status Date / Time No Known Allergies Allergy Verified 10/04/19 04:40 Visit Medications: Current Medications Acetaminophen (Tylenol) 650 mg PO Q4H PRN PRN Reason: Headache/Fever/Mild Pain (1-3) Hydrocodone Bitart/Acetaminophen ([place] 5/325) 1 tab PO Q4H PRN PRN Reason: Moderate Pain (4-6) Albuterol/Ipratropium (Duoneb) 3 ml NEB Q2H PRN PRN Reason: SOB &/or Wheezing Albuterol/Ipratropium (Duoneb) 3 ml NEB [id number] [facility] Last Admin: 10/06/19 12:47 Dose: 3 ml Amoxicillin/Clavulanate Potassium (Augmentin) 875 mg PO Q12HR [facility] Last Admin: 10/06/19 08:59 Dose: 875 mg Aspirin (Ecotrin) 81 mg PO DAILY [facility] Last Admin: 10/06/19 08:59 Dose: 81 mg Benzonatate (Tessalon) 100 mg PO TID PRN PRN Reason: Cough Last Admin: 10/04/19 09:24 Dose: 100 mg Bisacodyl (Dulcolax) 10 mg PO DAILYPRN PRN PRN Reason: Constipation Enoxaparin Sodium (Lovenox) 40 mg SC 0900 [facility] Last Admin: 10/06/19 09:00 Dose: 40 mg Famotidine (Pepcid) 20 mg PO BID [facility] Last Admin: 10/06/19 09:00 Dose: 20 mg Guaifenesin/Codeine Phosphate (Robitussin Ac) 10 ml PO Q6HR [facility] Last Admin: 10/06/19 12:22 Dose: 10 ml Guaifenesin/Codeine Phosphate (Robitussin Ac) 10 ml PO Q6H PRN PRN Reason: Cough Diltiazem HCl 125 mg/Miscellaneous Medication 1 each/ Sodium Chloride 125 mls @ 5 mls/hr IVPB INF [facility]; Protocol Last Admin: 10/06/19 16:40 Dose: 125 mls Loperamide HCl (Imodium) 2 mg PO PRN PRN PRN Reason: Diarrhea/Loose Stools Metoprolol Tartrate (Lopressor) 25 mg PO BID [facility] Last Admin: 10/06/19 09:00 Dose: 25 mg Ondansetron HCl (Zofran) 4 mg IVP Q6H PRN PRN Reason: Nausea/Vomiting Last Admin: 10/04/19 20:30 Dose: 4 mg Polyethylene Glycol (Miralax) 17 gm PO DAILY [facility] Last Admin: 10/06/19 09:00 Dose: 17 gm Senna/Docusate Sodium (Senokot S) 2 tab PO BID PRN PRN Reason: Constipation Sodium Chloride (Flush - Normal Saline) 10 ml IVF Q12HR [facility] Last Admin: 10/06/19 09:01 Dose: 10 ml Sodium Chloride (Flush - Normal Saline) 10 ml IVF PRN PRN PRN Reason: Saline Flush Vital Signs & Weight: Vital Signs Temp Pulse Resp BP Pulse Ox 10/06/19 16:04 98.5 F 77 20 105/57 L 95 10/06/19 15:10 125 H 10/06/19 12:47 80 16 96 10/06/19 12:20 98 F 97 18 103/63 97 10/06/19 07:56 97.4 F L 128 H 18 111/65 96 10/06/19 07:55 96 10/06/19 07:27 71 16 95 Weight 190 lb 4.8 oz - Physical Exam General: alert & oriented x3, no apparent distress HEENT: mucus membranes moist Neck: supple neck, midline trachea Cardiac: regular rate and rhythm Lungs: clear to auscultation Neuro: grossly intact Abdomen: active bowel sounds, soft, non-tender Extremities: no edema Skin: clear Musculoskeletal: no pain - Labs Result Diagrams: 10/05/19 01:50 10/05/19 01:50 Troponin/CKMB CK-MB (CK-2) 0.7 ng/mL (0-6.6) 10/04/19 00:41 Troponin I 0.304 ng/mL (< 0.028) H* 10/05/19 01:50 - Telemetry Sinus rhythms and dysrhythmias: sinus rhythm Supraventricular conduction: atrial fibrillation - Assessment/Plan Assessment/Plan: 1. Paroxysmal afib 2. Non-small cell Lung Ca 3. NSTEMI, Type 2 demand ischemia 4. Hemoptysis PLAN; - Back in sinus for now. - Will stop diltiazem drip tomorrow morning and will continue home dose of PO BB. - Aspirin alone for stroke prophylaxis due to hemoptysis.
--- NOTE | 2019-10-06 19:00 | PRG ---
DATE OF SERVICE: 10/06/2019 SERVICE: Pulmonary Medicine. INTERVAL HISTORY: The patient is doing outstanding from respiratory standpoint. Breathing comfortably. He has no complaints of chest discomfort, fevers, chills, nausea, or vomiting. Otherwise, he is breathing comfortably. He has returned to sinus rhythm. He has no complaints otherwise. He has been weaned down to room air, and his dyspnea on exertion has completely resolved. PHYSICAL EXAMINATION: VITAL SIGNS: Afebrile, pulse 77, blood pressure 105/57, respirations 20, saturation 95% on room air. GENERAL: The patient is awake and alert, in no apparent distress. LUNGS: Very good air entry. There is a slightly prolonged expiratory phase, but no wheezing or rhonchi are appreciated. HEART: Normal rate and regular. ABDOMEN: Soft, nontender, nondistended. Bowel sounds are positive. MUSCULOSKELETAL: No cyanosis or clubbing. There is no pitting in the bilateral lower extremities. NEUROLOGIC: Grossly nonfocal. LABORATORY DATA: Troponin is downtrending to 0.304. ASSESSMENT: 1. Atrial fibrillation with rapid ventricular rate, paroxysmal, returned to sinus rhythm. 2. Non-small cell lung cancer. 3. Hemoptysis. DISCUSSION AND PLAN: The patient has returned to his baseline from respiratory standpoint. From a pure lung standpoint, there is nothing that prevents his discharge. Antibiotics and steroids can be limited to a 5-day course. Pulmonary will follow intermittently during this hospital stay. If he gets into trouble over the weekend, give me a phone call. Otherwise, Dr. York will resume care on Tuesday. Job ID: [id number]
[2019-10-07] MEDS: guaiFENesin/Codeine Phosphate 200 mg/20 mg 10 ml UD Cup PO SCH ×3 (05:18→17:49)
[2019-10-07] MEDS: Aspirin 81 mg Enteric Coated Tablet PO SCH (08:46)
[2019-10-07] MEDS: Amoxicillin/Potassium Clav 875 MG TAB PO SCH ×2 (08:46→19:57)
[2019-10-07] MEDS: Famotidine 20 MG TAB PO SCH ×2 (08:46→19:58)
[2019-10-07] MEDS: Metoprolol Tartrate 25 MG TAB PO SCH (08:47)
[2019-10-07] MEDS: Polyethylene Glycol 3350 17 GM Packet PO SCH (08:47)
[2019-10-07] MEDS: Enoxaparin Sodium 40 MG/0.4 ML SYRINGE SC SCH (08:47)
[2019-10-07] MEDS ORDERED: Diltiazem 125 MG in Sodium Chloride 0.9% 100 ML IVPB SCH (10:00)
[2019-10-07] MEDS ORDERED: Metoprolol Tartrate 25 MG TAB PO SCH (11:15)
[2019-10-07 16:11] VITALS: TEMP 97.4
--- NOTE | 2019-10-07 18:38 | PDOC.CPN ---
- Subjective Date: 10/07/19 Time: 18:37 Interval history: He went back into afib RVR this morning and we increased his metoprolol PO and he went back into sinus fairly quickly. He was asymptomatic. - Review of Systems General: denies: fever/chills, weight/appetite/sleep changes, night sweats, fatigue Respiratory: denies: cough, congestion, shortness of breath, exercise intolerance Cardiovascular: denies: chest pain, palpitation, edema, paroxysmal nocturnal dyspnea, orthopnea Gastrointestinal: denies: nausea, vomiting, diarrhea, constipation, abd pain, GI bleeding Musculoskeletal: denies: pain, tenderness, stiffness, swelling, arthritis/ arthralgias Neurological: denies: numbness, syncope, seizure, weakness - Objective Allergies/Adverse Reactions: Allergies Allergy/AdvReac Type Severity Reaction Status Date / Time No Known Allergies Allergy Verified 10/04/19 04:40 Visit Medications: Current Medications Acetaminophen (Tylenol) 650 mg PO Q4H PRN PRN Reason: Headache/Fever/Mild Pain (1-3) Hydrocodone Bitart/Acetaminophen ([place] 5/325) 1 tab PO Q4H PRN PRN Reason: Moderate Pain (4-6) Albuterol/Ipratropium (Duoneb) 3 ml NEB Q2H PRN PRN Reason: SOB &/or Wheezing Albuterol/Ipratropium (Duoneb) 3 ml NEB [id number] [facility] Last Admin: 10/07/19 12:47 Dose: 3 ml Amoxicillin/Clavulanate Potassium (Augmentin) 875 mg PO Q12HR [facility] Last Admin: 10/07/19 08:46 Dose: 875 mg Aspirin (Ecotrin) 81 mg PO DAILY [facility] Last Admin: 10/07/19 08:46 Dose: 81 mg Benzonatate (Tessalon) 100 mg PO TID PRN PRN Reason: Cough Last Admin: 10/04/19 09:24 Dose: 100 mg Bisacodyl (Dulcolax) 10 mg PO DAILYPRN PRN PRN Reason: Constipation Famotidine (Pepcid) 20 mg PO BID [facility] Last Admin: 10/07/19 08:46 Dose: 20 mg Guaifenesin/Codeine Phosphate (Robitussin Ac) 10 ml PO Q6HR [facility] Last Admin: 10/07/19 17:49 Dose: Not Given Guaifenesin/Codeine Phosphate (Robitussin Ac) 10 ml PO Q6H PRN PRN Reason: Cough Loperamide HCl (Imodium) 2 mg PO PRN PRN PRN Reason: Diarrhea/Loose Stools Metoprolol Tartrate (Lopressor) 50 mg PO BID [facility] Ondansetron HCl (Zofran) 4 mg IVP Q6H PRN PRN Reason: Nausea/Vomiting Last Admin: 10/04/19 20:30 Dose: 4 mg Polyethylene Glycol (Miralax) 17 gm PO DAILY [facility] Last Admin: 10/07/19 08:47 Dose: 17 gm Senna/Docusate Sodium (Senokot S) 2 tab PO BID PRN PRN Reason: Constipation Sodium Chloride (Flush - Normal Saline) 10 ml IVF Q12HR [facility] Last Admin: 10/07/19 08:47 Dose: Not Given Sodium Chloride (Flush - Normal Saline) 10 ml IVF PRN PRN PRN Reason: Saline Flush Vital Signs & Weight: Vital Signs Temp Pulse Resp BP Pulse Ox 10/07/19 16:00 97.4 F L 80 31 H 116/58 L 96 10/07/19 12:47 72 16 95 10/07/19 11:59 98.2 F 72 19 117/56 L 96 10/07/19 08:37 98.4 F 85 16 123/64 93 L 10/07/19 08:00 93 L 10/07/19 07:21 77 16 100 Weight 190 lb 4.8 oz - Physical Exam General: alert & oriented x3 HEENT: mucus membranes moist Neck: supple neck Cardiac: regular rate and rhythm Lungs: clear to auscultation Neuro: grossly intact Abdomen: active bowel sounds Extremities: no edema Skin: clear Musculoskeletal: no pain - Labs Result Diagrams: 10/05/19 01:50 10/05/19 01:50 Troponin/CKMB CK-MB (CK-2) 0.7 ng/mL (0-6.6) 10/04/19 00:41 Troponin I 0.304 ng/mL (< 0.028) H* 10/05/19 01:50 - Telemetry Sinus rhythms and dysrhythmias: sinus rhythm Supraventricular conduction: atrial fibrillation - Assessment/Plan Assessment/Plan: 1. Paroxysmal afib 2. Non-small cell Lung Ca 3. NSTEMI, Type 2 demand ischemia 4. Hemoptysis PLAN; - Back in sinus for now. - Increased dose of BB. If he continue to have episodes of afib he may need addition of an anti arrhythmic. - Aspirin alone for stroke prophylaxis due to hemoptysis.
[2019-10-07 19:40] VITALS: BP 141/80
[2019-10-07] MEDS ORDERED: Metoprolol Tartrate 50 MG TAB PO SCH (21:00)
--- NOTE | 2019-10-08 12:23 | DIS ---
DATE OF ADMISSION: 10/04/2019 DATE OF DISCHARGE: 10/07/2019 DISCHARGE DISPOSITION: Home. FOLLOWUP: 1. Follow up with primary care physician in 1 week. 2. Follow up with Dr. Shine as scheduled. ALLERGIES: NO KNOWN DRUG ALLERGIES. DISCHARGE MEDICATIONS: 1. Augmentin 875 mg twice daily for next 5 days. 2. Aspirin 81 mg daily. 3. Lopressor 50 mg b.i.d. 4. Zofran as needed. 5. Tessalon Perles as needed. 6. Albuterol inhaler as needed. INPATIENT TELEVISION [place] DIRECTOR: Oncology Service/Cardiology Service/Pulmonary Service. BRIEF HOSPITAL COURSE: The patient is a 64-year-old male with COPD with recently diagnosed lung cancer, presented to the hospital with chest discomfort. Please refer to the history and physical dated October 04, 2019, for further details. The patient was admitted to the telemetry unit with a diagnosis of chest discomfort. He was evaluated by Cardiology. He underwent echocardiogram that showed ejection fraction 55% to 60% with mild mitral regurgitation, mild tricuspid regurgitation and diastolic dysfunction. Troponin maximum was 0.470. The patient developed atrial fibrillation with rapid ventricular response, requiring Cardizem drip. The patient spontaneously converted to sinus rhythm. He has been started on aspirin for stroke prophylaxis due to hemoptysis. He was also evaluated by Oncology and Pulmonary service due to history of lung cancer with hemoptysis. He did not have any recurrence of hemoptysis. He has been cleared by consultants for discharge. FINAL DIAGNOSES: 1. Chest discomfort. 2. Paroxysmal atrial fibrillation with rapid ventricular response. 3. Type 2 myocardial infarction. 4. Hemoptysis due to history of lung cancer. 5. Former smoker. 6. Positive family history. 7. History of lymphoma. 8. Chronic anemia. 9. Chronic diastolic heart failure. 10. Mild tricuspid regurgitation, mild mitral regurgitation. PLAN: Plan of care was discussed with the patient in detail. He stated understanding. Job ID: [id number]
--- NOTE | 2019-10-10 07:07 | PQF ---
SAP Composition Floor Layer Crystal Reports Winform ViewerMICHAEL HAZEL SUSANNE FREDERICK MD [id number] [id number] CLINICAL DOCUMENTATION CLARIFICATION FORM: POST DISCHARGE Addendum to original discharge summary date: ____ Late entry note date: __ DATE: 10/10/2019 ATTN: SUSANNE FREDERICK MD Please exercise your independent, professional judgment in responding to the clarification form. Clinical indicators are provided on the bottom of this form for your review Please check appropriate box(s): [ ] Chest pain due to Lung cancer [ ] Chest pain due to Supraventricular tachycardia [ ] Chest pain due to Chronic diastolic CHF [ x ] Chest pain Unknown Etilology [ ] Other diagnosis [ ] Unable to determine In addition, please specify: Present on Admission (POA): [ ] Yes [ ] No [ ] Unable to determine For continuity of documentation, please document condition throughout progress notes and discharge summary. Thank You. CLINICAL INDICATORS - SIGNS / SYMPTOMS /LABS Difficult to decide if pain is primarily pulmonary or cardiac in nature - Documented in H&P on 10/04 by Adonis Ralph MD Elevated suggest cardiac in nature - Documented in H&P on 10/04 by Adonis Ralph MD Possibly the tumor causing the chest pain - Documented in Event note on 10/04 by Rasheed Choi left lung mass decreased in size his chest pain was associated with breathing, it is possible that this is from mass although his troponin are elevated - Documented in Consult report on 10/04 by Josr West Chest discomfort felt possibly be of cardiac origin - Documented in Consult note on 10/04 by Krzysztof Ortiz MD troponin consistent b/w 0.47 and 0.39 today - Documented in Consult note on by Krzysztof Ortiz MD RISK FACTORS Lung cancer NSTEMI Supraventricular tachycardia - Documented in PNs on 10/05 by Jaylen Shaw Chronic diastolic CHF TREATMENTS: Consult pulmonology CT chest started aspirin 81 mg and low dose beta isabela- Documented in Consult note on 10/04 by Rl Dowell Discontinue vancomycin, continue Cardizem once cardiac rhythm is stabilized he can be discharged home - Documented in PNs on 10/05 by Jaylen Shaw (This form is maintained as a part of the permanent medical record) 2014 [employer]. All Rights Reserved [email or web address] [not provided] MTDD
== END 2019-10-07 20:34 | disposition home or self-care (01) | DRG 281 ==
LOC: ERS 23:21 → 2NO 10-04 00:30
PROVIDERS: ADMIT Internal Medicine; ATTEND Internal Medicine
DX: R07.9 Chest pain, unspecified (principal); I21.A1 Myocardial infarction type 2; C34.92 Malignant neoplasm of unspecified part of left bronchus or lung; I47.1 Supraventricular tachycardia; R04.2 Hemoptysis; I50.32 Chronic diastolic (congestive) heart failure; D59.1 Other autoimmune hemolytic anemias; J44.9 Chronic obstructive pulmonary disease, unspecified; I48.0 Paroxysmal atrial fibrillation; I34.0 Nonrheumatic mitral (valve) insufficiency; I07.1 Rheumatic tricuspid insufficiency; Z90.49 Acquired absence of other specified parts of digestive tract; Z87.891 Personal history of nicotine dependence; Z90.89 Acquired absence of other organs; Z79.899 Other long term (current) drug therapy
CPT/HCPCS: 36415; 71045; 80048; 80061; 82553; 83735; 84484; 85025; 93005; 93306; 93798; 94640; 94760; J1160; J1650; J2405; J2543; J3370; J3490; J7050; J7620

== ENCOUNTER 2019-11-23 09:11 | Outpatient (CLI) | payer MEDICARE ==
--- NOTE | 2019-11-23 10:28 | CT ---
CHEST CT WITH CONTRAST: HISTORY: Lung cancer. COMPARISON: CT pulmonary scan 09/02/2016. CORRELATION: PET imaging 09/06/2019. TECHNIQUE: Postcontrast chest CT is performed in the axial plane. FINDINGS: Lower neck and axilla: No masses or lymphadenopathy. Visualized thyroid gland is unremarkable. Mediastinum: Abnormal soft tissue density in the prevascular space, likely representing a conglomerat ion of lymph nodes measuring 2.5 x 1.1 cm. There is abnormal hypoattenuation in the subcarinal region with punctate calcifications, measuring 3.6 x 1.2 cm. There is abnormal soft tissue attenuatio n involving the left mainstem bronchus. There appears to be narrowing of the central bronchial involving the left lower lobe. Small air channel suggesting component of patency is still noted. Upper abdomen: Visualized upper solid abdominal viscera is grossly unremarkable. A right renal cyst i s noted. Osseous structures: There are no lytic or blastic lesions in the osseous structures. Pleural spaces: No pleural effusion. No pneumothorax. Right lung: Patchy groundglass opacities. No suspicious masses or consolidation. No suspicious lung n odules. Left lung: Minimal alveolar opacities involving the left upper lobe. There are multifocal alveolar op acities involving the left lower lobe. Dense consolidation noted in the left lower lobe on the recent CT used for attenuation correction from a PET scan on 09/06/2019 is less evident. These areas of alveolar opacification may represent atypical infection/inflammation. There does appear to be multifocal peribronchial thickening. The constellation of findings support an infectious or inflammat ory process. However, peribronchial spread of tumor cannot be entirely excluded. IMPRESSION: 1. Interval resolution of previously noted dense consolidation in the left lower lobe. There is perib ronchial thickening with alveolar opacities which may represent infection/inflammation. Spread of tumor cannot be entirely excluded. 2. Abnormal soft tissue density noted in the mediastinum as described above which may represent resid ual lymphadenopathy. There is evidence of significant mediastinal lymphadenopathy noted on recent PET imaging. When using the previous attenuation correction CT, the degree of lymphadenopathy has dec reased. Transcribed Date/Time: 11/23/2019 10:41 AM
== END 2019-11-23 09:12 | disposition home or self-care (01) ==
LOC: BICCT 09:11
PROVIDERS: ATTEND Internal Medicine Hematology & Oncology
DX: C34.32 Malignant neoplasm of lower lobe, left bronchus or lung (principal); C83.38 Diffuse large B-cell lymphoma, lymph nodes of multiple sites; R91.8 Other nonspecific abnormal finding of lung field
CPT/HCPCS: 71260

== ENCOUNTER 2020-02-02 16:05 | Inpatient (IN) | payer MEDICARE ==
[2020-02-02] MEDS ORDERED: Diltiazem 125 MG/25 ML ONE (17:10)
[2020-02-02 17:21] LABS: Hemoglobin 13.4 g/dL (14.0-18.0); Mean Corpuscular HGB CONC 33.2 g/dL (32.0-36.0); Mean Corpuscular Hemoglobin 34.5 pg (27.0-31.0); Mean Platelet Volume 9.3 fL (7.4-10.4); Platelet Count 359 thou/uL (130-400); RBC Distribution Width 17.9 % (11.5-14.5); Red Blood Cell (RBC) Count 3.89 mill/uL (4.70-6.10); White Blood Cell (WBC) Count 21.7 thou/uL (4.8-10.8)
[2020-02-02 17:33] LABS: Anisocytosis SLIGHT = 6-15 cells (100X) (0-5/hpf); Band 5 % (5-11); Lymphocytes 4 % (21-51); MDiff Complete? YES; Macrocytosis SLIGHT = 6-15 cells (100X) (0-5/hpf); Monocytes 3 % (0-10); Neutrophil 88 % (42-75); Platelet Morphology Comment Appears Adequate; Polychromasia SLIGHT = 2-3 cells (100X) (0-2/hpf)
[2020-02-02 17:46] LABS: ALT (SGPT) 137 U/L (8-55); AST (SGOT) 236 U/L (5-34); Albumin 2.8 g/dL (3.4-4.8); Alkaline Phosphatase 969 U/L (40-110); Anion Gap 20 mmol/L (10-20); BUN (Urea Nitrogen) 24 mg/dL (8.4-25.7); Bilirubin, Total 6.5 mg/dL (0.2-1.2); Calc. Creatinine Clearance 0 mL/min (70-130); Calcium 10.3 mg/dL (7.8-10.44); Carbon Dioxide 18 mmol/L (23-31); Chloride 94 mmol/L (98-107); Estimated GFR-MDRD 88; Globulin 4.2 g/dL (2.4-3.5); Glucose 73 mg/dL (80-115); Potassium 5.6 mmol/L (3.5-5.1); Sodium 126 mmol/L (136-145)
--- NOTE | 2020-02-02 17:47 | RAD ---
Chest AP view INDICATION: History of lung cancer with dizziness COMPARISON: CT of the thorax dated November 23, 2019 FINDINGS: Lungs: There is airspace consolidation within the retrocardiac left lower lobe. There is scattered e mphysema. Cardiac silhouette: The cardiomediastinal silhouette appears within normal limits. Pulmonary vasculature: Normal Pleural spaces: No pleural effusion or pneumothorax is demonstrated. Upper abdomen: No abnormality seen. Osseous structures: No acute osseous abnormality. Additional findings: There is a stable left subclavian chest wall port. IMPRESSION: New airspace consolidation in the retrocardiac left lower lobe suspicious for pneumonia. Recommend ra diographic follow-up to resolution. Stable emphysema. Stable left subclavian chest wall port.
[2020-02-02 18:04] LABS: CKMB 1.9 ng/mL (0-6.6)
[2020-02-02] MEDS ORDERED: Azithromycin 500 MG VIAL ONE (18:12)
[2020-02-02] MEDS ORDERED: cefTRIAXone\\ROCEPHIN 1 GM VIAL ONE (18:12)
[2020-02-02] MEDS ORDERED: Sodium Chloride 0.9% 100 ML ONE (18:13)
[2020-02-02] MEDS ORDERED: Fentanyl 100 MCG/2 ML VIAL ONE (18:34)
--- NOTE | 2020-02-02 19:07 | ULT ---
RIGHT UPPER QUADRANT ULTRASOUND CLINICAL HISTORY: Right upper quadrant pain. COMPARISON: CT the thorax dated November 23, 2019 FINDINGS: Liver:The liver is enlarged measuring 23 cm. There is cirrhotic morphology of the liver. There is dif fuse heterogeneity of the liver. Scattered rounded hypoechogenicities are present within the liver some which may reflect regenerative-type nodules. Intrahepatic bile ducts: No intrahepatic or extrahepatic biliary dilation.; Common bile duct: 4.6 mm. Gallbladder: There is a mildly prominent gallbladder fold versus a gallbladder polyp present within t he inferior gallbladder body measuring 8 mm in size. No intraluminal stones are identified. There is mild gallbladder wall thickening which may be related to the patient's cirrhosis. There is mild as cites. Ontiveros's sign:None Main portal vein:Patent with hepatopedal flow. Pancreas:Visualized pancreas appears normal. Right kidney: Right kidney measures 11.6 x 4.5 x 5.5 cm cm. No focal renal lesion or hydronephrosis. Additional findings: None. IMPRESSION: Hepatomegaly with diffuse heterogeneity of the liver suspicious for underlying cirrhosis. Rounded alexys earing hypoechogenicities within the liver are nonspecific and may reflect regenerative nodules related to cirrhosis or possibly hepatic metastatic disease. Follow-up CT of the abdomen utilizing a liver mass protocol would be helpful for additional characterization. Mildly prominent gallbladder fold versus small gallbladder polyp. Mild ascites
[2020-02-02] MEDS ORDERED: Ondansetron PF 4 MG/2 ML Vial IVP PRN (19:38)
[2020-02-02] MEDS ORDERED: Diltiazem 125 MG in Sodium Chloride 0.9% 100 ML IVPB SCH (19:45)
--- NOTE | 2020-02-02 20:09 | PDOC.EVN ---
Event Note - Event Note Event Note: called by RN for pulse into 170's with transfer to bed and while sitting up bp 80's systolic. In bed HR is fluctuating from 100-150's and bp is 100's systolic. Requested that IVF begin that were ordered in ER and 10 mg IV diltiazem now and increase gtt to 10 mg/hr. Heart rate then increased to 170's -180's and maintained for a few minutes. Called for guidance from Dr Ortiz - and while environmental services lead pt converted to NSR. Recommendation to start amio gtt without bolus. Discussed plan of care with patient and family, and d/c diltiazem 10 mg IV order.
[2020-02-02] MEDS ORDERED: Metoclopramide HCl 10 MG/2 ML VIAL IVP PRN (20:13)
[2020-02-02] MEDS: Sodium Chloride 0.9% 1,000 ML IV SCH (20:24)
[2020-02-02] MEDS: Metoprolol Tartrate 50 MG TAB PO SCH (20:24)
--- NOTE | 2020-02-02 20:30 | HP ---
CHIEF COMPLAINT: Extreme fatigue. HISTORY OF PRESENT ILLNESS: This is a 65-year-old male with history of lung cancer and last chemotherapy 3 weeks ago, followed by Dr. Ybarra of Oncology; paroxysmal atrial fibrillation; COPD; history of lymphoma, in remission; who presents to the emergency room with the above complaint. The patient reports that this has been ongoing for a few weeks with associated shortness of breath, weakness, and falls. He states that he was tired of feeling so fatigued, and today that he could not get up and down. He also reports frequent voiding with dark urine. History is obtained from the patient and his . They report he was in the emergency room in [place] 2 days ago for severe dehydration , low magnesium. There, he was found to have pneumonia, started on Cipro. He received IV fluids and was discharged to home. He denies any significant improvement. He has had poor p.o. intake, productive cough that has been ongoing, chills, nausea, vomiting, abdominal pain, and right-sided chest pain. In the emergency room, the patient found to have pneumonia and atrial fibrillation and rapid ventricular response, hyponatremia, hyperkalemia. He has received 500 mg azithromycin, fentanyl 50 mcg, 1 g of ceftriaxone, diltiazem 20 mg IV followed by 5 mg/hour, 1 L of normal saline and hospitalist called for admission. ALLERGIES: NO KNOWN DRUG ALLERGIES. CURRENT MEDICATIONS: 1. Keytruda IV injection q.3 weeks with the last injection 3 days ago. 2. Cipro 500 mg b.i.d. started 2 days ago. 3. [place] 5-325 that he takes one tablet 2 to 3 times per day. 4. Metoprolol tartrate 50 mg b.i.d. 5. Ventolin inhaler as needed. 6. Lactulose b.i.d. PAST MEDICAL HISTORY: 1. Atrial fibrillation - not on anticoagulation due to history of hemoptysis. 2. Lung cancer, status post chemotherapy and currently on immunotherapy, followed by Dr. Ybarra. 3. COPD. 4. Lymphoma, treated by chemotherapy. PAST SURGICAL HISTORY: Colon surgery due to large polyps, lymph node removal, tonsillectomy, hernia repair, port placement. SOCIAL HISTORY: The patient lives with his , who is his surrogate decision maker. He has a remote tobacco history, denies alcohol use. FAMILY HISTORY: Significant for lung cancer and heart disease. REVIEW OF SYSTEMS: Positive for constipation. Positive for productive cough, chills, nausea, vomiting, abdominal pain, chest pain on the right side that he describes as throbbing and intermittent over the past few days, as well as generally feeling anxious and depressed. Negative for dysuria, hematuria, or fevers. All remaining review of systems are reviewed and negative. PHYSICAL EXAMINATION: VITAL SIGNS: Blood pressure 116/64, pulse 90 with respirations 22, temp 98.2, sat 95% on 3 L and earlier it was 95% on room air. GENERAL: He is awake, alert, tired appearing, but not in acute distress. Able to answer questions appropriately. HEENT: Pupils are equal and round. His oral mucosa is pink and dry. NECK: Supple, nontender. LYMPHATICS: No palpable cervical or supraclavicular lymphadenopathy. LUNGS: Decreased breath sounds throughout. Distant lung sounds. No audible wheezing or rhonchi or rales. HEART: Irregularly irregular. No significant murmurs. ABDOMEN: Soft. Tenderness to palpation throughout. No palpable abnormalities and present bowel sounds. EXTREMITIES: No clubbing, cyanosis, or edema. NEUROLOGIC: No focal deficits. PSYCHIATRIC: Affect is blunted. VASCULAR: 2+ radial pulses. SKIN: No visible rashes, patient does have an area of crusting on his forehead. LABORATORY DATA: CBC; 21.7, 13.4, 40.3, 359 with 88% neutrophils. Renal panel; 126, 5.6, 94, 18, 24, 0.87, 73. Lactic acid 2.7. T bilirubin 6.5, AST 236, ALT 137, alkaline phosphatase 969, total protein 7, albumin 2.8. EKG personally reviewed. The one at 1703 shows atrial fibrillation with RVR, ST depression in the inferior leads in V3 through V6. EKG at 1753, normal axis, sinus rhythm. Inverted T-waves in V2, III, and an incomplete right bundle branch block. Chest x-ray shows a new airspace consolidation in the retrocardiac left lower lobes suspicious for pneumonia and stable emphysema. Ultrasound of the abdomen shows an enlarged liver of 23 cm, a diffuse heterogeneity suspicious for underlying cirrhosis, rounded hypoechogenicity within the liver, nonspecific and may reflect regenerative nodules related to cirrhosis or possibly hepatic metastatic disease. Followup CT of the abdomen with a liver mass protocol be helpful to further characterize. Mild ascites. IMPRESSION: 1. Pneumonia in a patient with lung cancer, status post chemotherapy and undergoing immunotherapy. 2. Atrial fibrillation with rapid ventricular response, now on diltiazem drip. 3. Elevated liver function tests with abnormal ultrasound and question of cirrhosis and possibly metastatic disease. 4. Hyperkalemia with metabolic acidosis. 5. Hyponatremia - hypovolemic. 6. Indeterminate troponin. 7. Hypoalbuminemia. 8. Mood changes. 9. Constipation. PLAN: 1. Admission to the hospital. 2. Continue diltiazem drip. We will consult Cardiology. The patient had an echocardiogram in September 2019 with a normal EF. We will hold on ordering another one. We will continue his metoprolol. 3. Continuing the azithromycin and ceftriaxone for the pneumonia, oxygen supplementation as needed and nebulizer therapy as needed. 4. For the hypovolemic hyponatremia, we will start IV fluids at a maintenance rate. 5. For the hyperkalemia, we will start IV fluids and monitor both this and the metabolic acidosis. 6. Trend troponins. 7. Consultation to Nephrology and Oncology for further assistance and treatment. 8. Continuing pain management. We will order the [place] in addition to IV pain medicine if needed. 9. Holding full anticoagulation. By report, patient with a history of hemoptysis associated with in an earlier hospitalization. 10. DVT prophylaxis. Pneumatic compression devices. 11. GI prophylaxis not indicated. 12. Code status is full. Surrogate decision makers are the patient's and granddaughter. 13. Reviewed the plan of care with the patient and his family. They demonstrate understanding. No questions or further needs at the end of evaluation. 14. The patient is at high risk given age, comorbidities, and current presentation. Job ID: [id number] [facility]
[2020-02-02 20:59] LABS: Anion Gap 18 mmol/L (10-20); BUN (Urea Nitrogen) 26 mg/dL (8.4-25.7); Calc. Creatinine Clearance 0 mL/min (70-130); Calcium 9.9 mg/dL (7.8-10.44); Carbon Dioxide 20 mmol/L (23-31); Chloride 96 mmol/L (98-107); Estimated GFR-MDRD 77; Glucose 95 mg/dL (80-115); Potassium 4.9 mmol/L (3.5-5.1); Sodium 129 mmol/L (136-145)
[2020-02-02] MEDS: Amiodarone 450 MG in Dextrose 5% in Water 250 ML IVPB SCH (21:02)
[2020-02-02] MEDS: Fentanyl 100 MCG/2 ML VIAL SLOW IVP PRN ×2 (21:04→23:41)
[2020-02-02 21:25] LABS: Troponin I 0.013 ng/mL (< 0.028)
--- NOTE | 2020-02-03 00:03 | PDOC.EVN ---
Event Note - Event Note Event Note: RN called - HR in 50s. Cardizem drip dced. Cont Amiodarone drip
[2020-02-03] MEDS: Fentanyl 100 MCG/2 ML VIAL SLOW IVP PRN ×6 (01:50→22:12)
[2020-02-03] MEDS ORDERED: Benzonatate 100 MG CAP PO PRN (03:26)
[2020-02-03] MEDS ORDERED: HYDROcodone/Acetaminophen 5/325 mg Tablet PO PRN (03:26)
[2020-02-03] MEDS: Amiodarone 450 MG in Dextrose 5% in Water 250 ML IVPB SCH ×2 (03:59→22:00)
[2020-02-03 04:18] LABS: #Basophils 0.1 thou/uL (0.0-0.2); #Eosinphils 0.1 thou/uL (0.0-0.7); #Lymphocytes 1.9 thou/uL (1.20-3.40); #Monocytes 1.5 thou/uL (0.11-0.59); #Neutrophils 17.8 thou/uL (1.40-6.50); %Basophils 0.3 % (0.0-1.0); %Eosinophils 0.2 % (0.0-10.0); %Lymphocytes 8.8 % (21.0-51.0); %Monocytes 7.2 % (0.0-10.0); %Neutrophils 83.5 % (42.0-75.0); Hemoglobin 11.3 g/dL (14.0-18.0); Mean Corpuscular HGB CONC 32.9 g/dL (32.0-36.0); Mean Corpuscular Hemoglobin 34.4 pg (27.0-31.0); Mean Platelet Volume 8.6 fL (7.4-10.4); Platelet Count 307 thou/uL (130-400); RBC Distribution Width 17.7 % (11.5-14.5); Red Blood Cell (RBC) Count 3.29 mill/uL (4.70-6.10); White Blood Cell (WBC) Count 21.3 thou/uL (4.8-10.8)
[2020-02-03 04:36] LABS: ALT (SGPT) 138 U/L (8-55); AST (SGOT) 226 U/L (5-34); Albumin 2.5 g/dL (3.4-4.8); Alkaline Phosphatase 825 U/L (40-110); Anion Gap 15 mmol/L (10-20); BUN (Urea Nitrogen) 29 mg/dL (8.4-25.7); Calc. Creatinine Clearance 84 mL/min (70-130); Calcium 9.6 mg/dL (7.8-10.44); Carbon Dioxide 21 mmol/L (23-31); Chloride 97 mmol/L (98-107); Estimated GFR-MDRD 75; Globulin 3.3 g/dL (2.4-3.5); Glucose 101 mg/dL (80-115); Magnesium 1.4 mg/dL (1.6-2.6); Protein, Total 5.8 g/dL (5.8-8.1); Sodium 128 mmol/L (136-145)
[2020-02-03] MEDS: Sodium Chloride 0.9% 1,000 ML IV SCH ×4 (04:59→22:07)
[2020-02-03] MEDS: Metoprolol Tartrate 50 MG TAB PO SCH ×2 (10:21→20:07)
--- NOTE | 2020-02-03 11:15 | CON ---
DATE OF CONSULTATION: 02/03/2020 PRIMARY BUNCHER MACHINE: Delmer Shine. HISTORY OF PRESENT ILLNESS: Mr. Salinas is a pleasant 65-year-old white gentleman, who comes to the hospital for extreme fatigue. He has history of lung cancer and has been on chemotherapy, last chemotherapy was [address] Ybarra. He has a history of paroxysmal atrial fibrillation, has been here late last year for the same reasons. He has not been on any stroke prophylaxis with full anticoagulation given the history of hemoptysis early in his lung cancer situation. He also has a history of COPD and lymphoma, in remission. He was diagnosed with what appears to be a pneumonia and was in atrial fibrillation with RVR. Cardiology has been consulted for his atrial fibrillation. I advised them last night to put him on amiodarone drip and as they were about to hang the bag, he actually converted to sinus on his own. I asked to please start the bag anyways and he actually had several runs of paroxysmal rapid atrial fibrillation which converted quicker while on amiodarone. He is currently in sinus rhythm, is feeling slightly better than yesterday. PAST MEDICAL HISTORY: 1. Paroxysmal atrial fibrillation. 2. Hemoptysis, recently precluding full anticoagulation for stroke prophylaxis. 3. Lung cancer, on chemotherapy and immunotherapy with Dr. Ybarra. 4. COPD. 5. Lymphoma, in remission. PAST SURGICAL HISTORY: 1. Removal of large polyps. 2. Lymph node resection. 3. Tonsillectomy. 4. Hernia repair. 5. Port placement. SOCIAL HISTORY: Former tobacco user. No alcohol or drugs. FAMILY HISTORY: Lung cancer and heart disease. OUTPATIENT MEDICATIONS: 1. Keytruda IV injections every two weeks. 2. Cipro 500 mg b.i.d., started two days ago. 3. [place] p.r.n. 4. Metoprolol tartrate 50 mg b.i.d. 5. Ventolin inhaler. 6. Lactulose b.i.d. ALLERGIES: NO KNOWN DRUG ALLERGIES. REVIEW OF SYSTEMS: A 12-point review of systems was done and was all negative unless stated in the history of present illness. PHYSICAL EXAMINATION: VITAL SIGNS: Temperature 98.2, pulse 61, respiratory rate 20, saturating 100% on room air, blood pressure 133/72. GENERAL: Awake, alert, oriented x3. No distress. HEENT: Normocephalic, atraumatic. NECK: Supple. LUNGS: Have decreased breath sounds throughout. CARDIOVASCULAR: Regular rate and rhythm. No murmurs. ABDOMEN: Soft. Positive bowel sounds. EXTREMITIES: No edema. SKIN: Warm and dry. LABORATORY DATA: Laboratory work was reviewed. White count of 21, hemoglobin 13, hematocrit 40, and platelet count of 359. Chemistry with a sodium of 129, potassium is 4.9, chloride of 96, carbon dioxide of 20, anion gap of 18, BUN of 26, creatinine 0.97, GFR of 77, glucose of 95. Lactic acid was high at 3.0. Troponin was negative x2. Alkaline phosphatase was 825, ALT 138, AST 226, total bilirubin at 6.0, magnesium was low at 1.4. Abdominal ultrasound performed for the abnormal LFTs showed enlarged liver with cirrhotic morphology with scattered rounded hypoechogenicities, could be also hepatic metastatic disease. Followup CT was advised, mildly prominent gallbladder, mild ascites. Chest x-ray showed consolidation in the retrocardiac left lower lobe suspicious for pneumonia. ASSESSMENT: 1. Paroxysmal atrial fibrillation. 2. Pneumonia. 3. Lung cancer. 4. Possible metastatic disease to liver. 5. Possible cirrhosis of the liver. PLAN: 1. Continue amiodarone drip for now. 2. Would get GI involved to see if they feel that this is chronic liver failure and amiodarone may not be the best medication in this case. 3. Would continue antibiotics per primary team. 4. states that he no longer is having hemoptysis. We may want to rechallenge with anticoagulation for stroke prophylaxis; however, this is not the best time as he may have hemoptysis just from pneumonia as we may have to wait for the pneumonia to be treated to rechallenge. Thank you for letting us to participate in the care of your patient. Dr. Shine, his primary supervisor screen printing will follow up in the morning. Job ID: [id number]
--- NOTE | 2020-02-03 12:45 | CON ---
DATE OF CONSULTATION: HISTORY OF PRESENT ILLNESS: Sabino Salinas is a 65-year-old gentleman, who is well known to me. He came to the ER last night with shortness of breath. His x-ray shows a previously described left lower lung density, which is part of his squamous cell carcinoma. No fever or chills or sweats. 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 PAST SURGICAL HISTORY: Previous surgeries include a MediPort, hernia, tonsils, and bronchoscopy. SOCIAL HISTORY: No alcohol or drug abuse. Former smoker, quit 10 years ago. ALLERGIES: NONE. MEDICATIONS: Home medicine includes: 1. Lopressor 50 twice a day. 2. Tessalon Perles. 3. Augmentin. 4. Albuterol. He is now on: 1. Zithromax. 2. Ceftriaxone. REVIEW OF SYSTEMS: Otherwise, 10-point negative. PHYSICAL EXAMINATION: VITAL SIGNS: Blood pressure is 132/72, temperature 97, pulse 77, and respirations 18. CHEST: No wheezing or crackles. CARDIAC: Normal S1 and S2. No gallops. ABDOMEN: No masses. LABORATORY DATA: White count 21,000, H and H 11 and 34, and platelet count 307. Sodium 127, AST is elevated 226, and ALT is 138. ASSESSMENT: 1. Recurrent supraventricular tachycardia flutter. 2. Abnormal liver profile. 3. Left lower lung infiltrate is probably bronchogenic carcinoma, not pneumonia. 4. New abnormal LFTs, etiology unclear. 5. Hyponatremia. 6. Chronic obstructive pulmonary disease. PLAN: I doubt he has pneumonia, even though he is febrile with leukocytosis. His x-ray findings are consistent with his lung cancer, not pneumonia. I will probably switch him over to oral medication, in the morning low-dose prednisone, neb treatments, and supportive care. We will follow and discuss. This is a consultation note, 70 minutes, 50% direct patient care. Job ID: [id number]
[2020-02-03 13:19] LABS: Bacteria/HPF None Seen HPF (None Seen); RBC/HPF 0-3 HPF (0-3); Renal Epithelial 0-3 HPF (None Seen); Squamous Epithelial 0-3 HPF (0-3); Transitional Epithelial 0-3 HPF (None Seen); WBC/HPF 0-3 HPF (0-3)
[2020-02-03] MEDS ORDERED: Albumin 25% 25 GM/100 ML BOT IVPB SCH (14:09)
[2020-02-03] MEDS ORDERED: CCU Electrolyte Replacement 1 EACH FS ONE (14:10)
[2020-02-03] MEDS ORDERED: Potassium Chloride 20 MEQ TAB PO PRN (14:16)
[2020-02-03] MEDS ORDERED: Potassium Phosphate 9 MMOL in Sodium Chloride 0.9% 100 ML IVPB PRN (14:16)
[2020-02-03] MEDS ORDERED: Potassium Chloride 40 MEQ in Premix Bag 1 BAG IVPB PRN (14:16)
[2020-02-03] MEDS ORDERED: Potassium Chloride 40 MEQ in Sodium Chloride 0.9% 250 ML 250 ML IVPB PRN (14:16)
[2020-02-03] MEDS ORDERED: Potassium Phosphate 15 MMOL in Sodium Chloride 0.9% 250 ML 250 ML IV PRN (14:16)
[2020-02-03] MEDS ORDERED: PHOS-NAK 1 PKT PACK PO PRN ×2 (14:16)
[2020-02-03] MEDS ORDERED: Potassium Phosphate 12 MMOL in Sodium Chloride 0.9% 250 ML 250 ML IV PRN (14:16)
[2020-02-03] MEDS ORDERED: CCU ELECTROLYTE REPLACEMENT PROTOCOL FS PRN (14:16)
[2020-02-03] MEDS ORDERED: Magnesium Oxide 400 MG TAB PO PRN ×2 (14:16)
[2020-02-03] MEDS ORDERED: Magnesium 2 GM/50 ML 2 GM in Premix Bag 1 BAG IVPB PRN (14:16)
--- NOTE | 2020-02-03 14:22 | CON ---
DATE OF CONSULTATION: 02/03/2020 CONSULTING PHYSICIAN: REASON FOR CONSULTATION: Acute kidney injury and acidosis and hyperkalemia. REASON FOR ADMISSION: Fatigue. HISTORY OF PRESENT ILLNESS: A 65-year-old male with history of AFib, lung cancer, COPD, lymphoma, came to the hospital with fatigue and tiredness and abdominal pain. The patient is being evaluated. He was found to have hyponatremia, hyperkalemia. Nephrology consulted. The patient is still not able to pee much. His creatinine has been stable. PAST MEDICAL HISTORY: Positive for AFib, lung cancer, COPD, lymphoma. PAST SURGICAL HISTORY: Colon surgery, lymph node removal, tonsillectomy, hernia repair, and port placement. HOME MEDICATIONS: Reviewed. ALLERGIES: NO KNOWN DRUG ALLERGIES. SOCIAL HISTORY: No smoking, alcohol, or illicit drug use. FAMILY HISTORY: No history of kidney disease. REVIEW OF SYSTEMS: The following complete review of systems was negative, unless otherwise mentioned in the HPI or below: Constitutional: Weight loss or gain, ability to conduct usual activities. Skin: Rash, itching. Eyes: Double vision, pain. ENT/Mouth: Nose bleeding, neck stiffness, pain, tenderness. Cardiovascular: Palpitations, dyspnea on exertion, orthopnea. Respiratory: Shortness of breath, wheezing, cough, hemoptysis, fever or night sweats. Gastrointestinal: Poor appetite, abdominal pain, heartburn, nausea, vomiting, constipation, or diarrhea. Genitourinary: Urgency, frequency, dysuria, nocturia. Musculoskeletal: Pain, swelling. Neurologic/Psychiatric: Anxiety, depression. Allergy/Immunologic: Skin rash, bleeding tendency. PHYSICAL EXAMINATION: GENERAL: This is a well-built male, in no apparent distress. VITAL SIGNS: Temperature 97.0, pulse 62, respiratory rate 18, blood pressure 133/70. HEENT: Atraumatic, normocephalic. Oral mucosa is moist. NECK: Supple. CV: S1 and S2. Rate and rhythm regular. RESPIRATORY: Clear. GASTROINTESTINAL: Abdomen is soft. MUSCULOSKELETAL: 1+ edema. DERMATOLOGIC: No skin rash. NEUROLOGIC: Alert and awake. PSYCHIATRIC: Mood and affect normal. LABORATORY DATA: Hemoglobin 11.3. Potassium 5.0, BUN is 29, creatinine 0.9, sodium is 128. ASSESSMENT AND PLAN: 1. Hyperkalemia, much better with hydration. 2. Acidosis, getting better. Continue hydration. 3. Hyponatremia. We will check urine studies, getting better with IV fluids, but could be SIADH also is a possibility. 4. Lactic acidosis. 5. Hypoalbuminemia. 6. Anemia. 7. Monitor labs closely. Continue IV fluids for now. We will check urine studies. Thank you for the consult. Job ID: [id number]
--- NOTE | 2020-02-03 16:28 | PDOC.HOSPP ---
- Subjective Encounter Date: 02/03/20 Encounter Time: 13:00 Subjective: pt up in bed feels tired. he does not have a appetite and has not been eating much. He is now on keytruda. - Objective Vital Signs & Weight: Vital Signs (12 hours) Temp Pulse Resp Pulse Ox 02/03/20 15:30 97.8 F 02/03/20 11:12 97.0 F L 02/03/20 10:34 62 17 100 02/03/20 08:00 100 02/03/20 07:12 98.2 F Weight Weight 181 lb 6.4 oz Most Recent Monitor Data Heart Rate from ECG 60 NIBP 104/51 NIBP BP-Mean 68 Respiration from ECG 26 SpO2 97 I&O: 02/02/20 02/03/20 02/04/20 05:59 06:59 06:59 Intake Total Output Total Balance Result Diagrams: 02/03/20 04:06 02/03/20 04:06 Hospitalist ROS - Review of Systems Cardiovascular: denies: chest pain, palpitations, orthopnea, paroxysmal noc. dyspnea, edema, light headedness, other Gastrointestinal: denies: nausea, vomiting, abdominal pain, diarrhea, constipation, melena, hematochezia, other Genitourinary: denies: dysuria, frequency, incontinence, hematuria, retention, other - Medication Medications: Active Medications Generic Name Dose Route Start Last Admin Trade Name Freq PRN Reason Stop Dose Admin Albuterol/Ipratropium 3 ml 02/02/20 19:38 02/03/20 10:34 Duoneb NEB 3 ml [id number] PRN Administration SOB &/or Wheezing Benzonatate 100 mg 02/03/20 03:26 02/03/20 03:59 Tessalon PO 100 mg TID PRN Administration Cough Fentanyl 25 mcg 02/02/20 19:38 02/03/20 04:59 Sublimaze SLOW IVP 25 mcg Q2H PRN Administration Moderate to Severe Pain (6-10) Fentanyl 50 mcg 02/02/20 19:38 02/03/20 15:19 Sublimaze SLOW IVP 50 mcg Q2H PRN Administration Severe Pain (7-10) Sodium Chloride 1,000 mls @ 100 mls/hr 02/02/20 19:45 02/03/20 15:39 Normal Saline 0.9% IV Not Given .Q10H JOVI Amiodarone HCl 450 mg/ 259 mls @ 0 mls/hr 02/02/20 20:15 02/03/20 03:59 Dextrose/Water IVPB 259 mls INF JOVI Administration Protocol Per Protocol Lactulose 20 gm 02/02/20 21:00 02/03/20 10:16 Lactulose PO 20 gm BID JOVI Administration Metoprolol Tartrate 50 mg 02/02/20 21:00 02/03/20 10:21 Lopressor PO 50 mg BID JOVI Administration Sodium Chloride 10 ml 02/02/20 21:00 02/03/20 10:17 Flush - Normal Saline IVF 10 ml Q12HR JOVI Administration - Exam Eye: scleral icterus Neck: negative: supple, symmetric, no JVD, no thyromegaly, no lymphadenopathy, no carotid bruit, JVD Heart: negative: RRR, no murmur, no gallops, no rubs, normal peripheral pulses, irregular, diminshed peripheral pulses, murmur present, II/IV, III/IV Respiratory: negative: CTAB, no wheezes, no rales, no ronchi, normal chest expansion, no tachypnea, normal percussion, rales, rhonchi, tachypneic, wheezes Gastrointestinal: soft, normal bowel sounds, no guarding Gastrointestinal - other findings: distention and pain on palpation of epigastric area. Hosp A/P (1) Atrial fibrillation Code(s): I48.91 - UNSPECIFIED ATRIAL FIBRILLATION Status: Acute Qualifiers: Qualified Code(s): I48.0 - Paroxysmal atrial fibrillation (2) Lung cancer Code(s): C34.90 - MALIGNANT NEOPLASM OF UNSP PART OF UNSP BRONCHUS OR LUNG Status: Acute Qualifiers: Laterality: left (3) Elevated LFTs Code(s): R94.5 - ABNORMAL RESULTS OF LIVER FUNCTION STUDIES Status: Acute (4) Hyponatremia Code(s): E87.1 - HYPO-OSMOLALITY AND HYPONATREMIA Status: Acute (5) Hyperkalemia Code(s): E87.5 - HYPERKALEMIA Status: Acute (6) Pneumonia Code(s): J18.9 - PNEUMONIA, UNSPECIFIED ORGANISM Status: Acute (7) Leukocytosis Code(s): D72.829 - ELEVATED WHITE BLOOD CELL COUNT, UNSPECIFIED Status: Acute - Plan pt's abdomen is distended will get ct abd triphasic to evaluate liver since his lfts are elevated and there is a concern for possible liver mets. will add ensure. He is not eating. His urine output is minimal and very dark most likely due to bili. echo pending. HR controlled. will continue abx. He still has a elevated wbc and has not received any hematopoietic cell stimulator meds. keytruda can increase lfts. will monitor.
[2020-02-03] MEDS ORDERED: cefTRIAXone\\ROCEPHIN 1 GM in Sodium Chloride 0.9% 100 ML IVPB SCH ×2 (17:00→21:00)
[2020-02-03] MEDS ORDERED: Azithromycin 500 MG in Sodium Chloride 0.9% 250 ML 250 ML IVPB SCH ×2 (18:00→22:00)
--- NOTE | 2020-02-03 18:40 | CT ---
CT of the abdomen with and without contrast INDICATION: Liver lesions COMPARISON: CT the thorax dated November 23, 2019 and a PET/CT dated September 06, 2019 TECHNIQUE: Axial noncontrast CT the abdomen, arterial phase axial CT the abdomen and portal venous ph ase axial CT of the abdomen were obtained. Sagittal and coronal reformats were constructed from the delayed phase imaging series. FINDINGS: Lung bases: There is new subsegmental volume loss within the left lower lobe. There are small bilater al pleural effusions. Kidneys: There is a 1.6 cm cyst involving the right mid kidney. No hydronephrosis is demonstrated. No focal left renal lesion is evident. Liver: There are numerous hypodense lesions seen filling the liver consistent with multiple hepatic m etastatic lesions. One of the largest is seen measuring 4.6 cm within segment 6 of the right hepatic lobe. There is prominent nodular contour the liver with hepatomegaly consistent with changes of cirrhosis. Gallbladder: Normal. Pancreas: Normal. Adrenal glands: Normal. Spleen: Mildly enlarged measuring 12.7 cm Retroperitoneum: There are a few mildly prominent lymph nodes seen within the retroperitoneum adjacen t to the aorta. The largest measures 9 mm on image 36 of series 4. There are prominent lymph nodes within the periportal region. The largest lymph node is seen measuring 1.8 cm. Vasculature: There are moderate vascular calcifications seen involving the visualized vasculature. Visualized small and large bowel: There is postsurgical change of a partial colectomy. Small bowel is of normal caliber. Soft tissues: Mild anasarca. Mild ascites Osseous structures: Diffuse osteopenia. Scattered osteoarthritic and degenerative changes of the visu alized osseous structures. No suspicious osteolytic or osteoblastic lesion is identified. IMPRESSION: 1. Numerous nonarterial enhancing hypodense lesions seen diffusely throughout the liver is most consi stent with hepatic metastatic disease. 2. Hepatomegaly with nodular contour of the liver is suspicious for underlying cirrhosis. 3. Small bilateral pleural effusions, mild ascites and mild anasarca. 4. New subsegmental volume loss in the left lower lobe may reflect a recurrence in the left infrahila r lung mass with postobstructive atelectasis of portions of the left lower lobe. Dedicated CT of the thorax with IV contrast is recommended for further characterization. 5. Enlarged lymph nodes of the upper retroperitoneum and periportal region suspicious for malignant l ymphadenopathy. 6. Right renal cyst
[2020-02-03] MEDS ORDERED: Sodium Chloride 0.9% 1,000 ML IV SCH (18:45)
--- NOTE | 2020-02-03 19:35 | CON ---
DATE OF CONSULTATION: 02/03/2020 REASON FOR CONSULTATION: Metastatic squamous cell carcinoma of the lung. HISTORY OF PRESENT ILLNESS: The patient is a 65-year-old man with known stage IV squamous cell carcinoma of the lung diagnosed in August 2019 and manifested by a new left lower lobe mass, mediastinal adenopathy, and metastasis to the left scapula and right iliac area with possible L1 metastasis as well. Chemotherapy was initiated with carboplatin/Taxol/Keytruda and he completed 6 cycles of therapy with improvement in imaging in December 2019. More recently, he has developed collapse of the left lower lobe and some right upper quadrant discomfort and this was being further evaluated. This admission was prompted by progressive weakness and an episode of atrial fibrillation with rapid ventricular response. He is currently in the ICU on amiodarone drip. Atrial fibrillation has now been converted to normal sinus rhythm. He complains of right upper quadrant pain and a poor appetite. He also has had some dark urine recently. Further laboratory studies on admission show a CBC with a white blood cell count of 21,000 with a left shift. Hemoglobin is 11.3 and platelet count 307,000. Chemistries show sodium 126, potassium 5.6, chloride 94, and carbon dioxide 18. Creatinine is 0.87 and BUN 24. The albumin is 2.8 and liver function studies are significantly abnormal manifested by a bilirubin of 6.5, AST 236, and ALT 137. The alkaline phosphatase is 969. The alkaline phosphatase has been trending up since November. However, the bilirubin was normal in December and transaminases were also normal in December. I am asked to see the patient at this time to provide further management and recommendations in this patient with probable progressive malignancy. PAST MEDICAL HISTORY: ALLERGIES: NONE. MEDICATIONS: 1. Hydrocodone. 2. Albuterol nebulization. 3. Tessalon. 4. Azithromycin. 5. Ceftriaxone. 6. Metoprolol. 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 He is presumptively cured. There is a history of essential tremor. SURGERIES: Undergone tonsillectomy and herniorrhaphy in the distant past. FAMILY HISTORY: There is no history of malignancy in first-degree relatives. PERSONAL AND SOCIAL HISTORY: He is with two sons and two daughters. He lives with his spouse. He is a former smoker and does have a [id number] year history of smoking. He stopped smoking in 2014. He is a social drinker and does not use alcohol excessively. 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 REVIEW OF SYSTEMS: Except as mentioned in the history of present illness. He denies significant cardiopulmonary, GI, , musculoskeletal, or neurological complaints. PHYSICAL EXAMINATION: VITAL SIGNS: Temperature is 97, pulse 62 and regular, respirations 17, O2 saturation 100% on low-flow O2, and blood pressure 126/70. GENERAL: The patient is a well-developed and well-nourished man, in no acute distress. He is alert, oriented, and cooperative. HEENT: The extraocular movements are intact. Pupils are equal, round, and react to light. NECK: Supple. LUNGS: Decreased breath sounds on the left anteriorly. The right is clear. CARDIOVASCULAR: Regular rate and rhythm without murmur, rub, gallop, or click. ABDOMEN: The right upper quadrant is significantly tender on palpation with a probable enlarged liver. There is some minimal abdominal distention. Bowel sounds are normal. EXTREMITIES: No clubbing, cyanosis, edema. SKIN: Normal. LYMPH: No adenopathy. MUSCULOSKELETAL: No active arthritis. NEUROLOGIC: No focal findings and the cranial nerves 2 through 12 are grossly intact. LABORATORY DATA: See history of present illness. IMAGING: An ultrasound of the abdomen does show an enlarged liver measuring 23 cm with diffuse heterogeneity. There are scattered rounded hypoechogenicities within the liver of unclear significance. Regenerating cirrhotic nodules are a possibility, but metastatic disease cannot be excluded. A CT of the chest in October showed similar findings within the liver. There was consolidation in the left lower lobe as well. IMPRESSION: 1. Metastatic squamous cell carcinoma of the lung diagnosed in August 2019, status post 6 cycles of carboplatin/Taxol/Keytruda. 2. Atrial fibrillation with rapid ventricular response. 3. New and abrupt onset of abnormal liver function studies associated with left lower lobe collapse. I am primarily concerned about progressive malignancy within the liver, although immunotherapy-related hepatic toxicity is a remote possibility. RECOMMENDATIONS: I would suggest a CT scan of the abdomen when his condition allows. Given the hepatomegaly and painful right upper quadrant and the pattern of liver function abnormality, I think the immunotherapy-related toxicity is much less likely than progressive malignancy. However, a CT scan of the liver would likely be diagnostic in differentiating metastatic disease from hepatotoxicity of immunotherapy. Thanks very much for allowing me to provide more recommendations. We will follow with you while he is hospitalized. Job ID: [id number]
[2020-02-03] MEDS: HYDROcodone/Acetaminophen 5/325 mg Tablet PO PRN (23:27)
[2020-02-04] MEDS: Fentanyl 100 MCG/2 ML VIAL SLOW IVP PRN ×7 (02:21→23:19)
[2020-02-04] MEDS: HYDROcodone/Acetaminophen 5/325 mg Tablet PO PRN ×3 (03:28→12:59)
[2020-02-04 03:49] LABS: #Eosinphils 0.1 thou/uL (0.0-0.7); #Lymphocytes 1.5 thou/uL (1.20-3.40); #Monocytes 1.2 thou/uL (0.11-0.59); #Neutrophils 14.6 thou/uL (1.40-6.50); %Basophils 0.1 % (0.0-1.0); %Eosinophils 0.4 % (0.0-10.0); %Lymphocytes 8.7 % (21.0-51.0); %Monocytes 7.1 % (0.0-10.0); %Neutrophils 83.8 % (42.0-75.0); Hemoglobin 10.9 g/dL (14.0-18.0); Mean Corpuscular HGB CONC 33.1 g/dL (32.0-36.0); Mean Corpuscular Hemoglobin 34.7 pg (27.0-31.0); Mean Platelet Volume 8.6 fL (7.4-10.4); Platelet Count 271 thou/uL (130-400); RBC Distribution Width 17.9 % (11.5-14.5); Red Blood Cell (RBC) Count 3.15 mill/uL (4.70-6.10); White Blood Cell (WBC) Count 17.4 thou/uL (4.8-10.8)
[2020-02-04 04:08] LABS: Phosphorus 3.3 mg/dL (2.3-4.7)
[2020-02-04 04:09] LABS: ALT (SGPT) 145 U/L (8-55); AST (SGOT) 240 U/L (5-34); Albumin 2.8 g/dL (3.4-4.8); Alkaline Phosphatase 771 U/L (40-110); Anion Gap 13 mmol/L (10-20); BUN (Urea Nitrogen) 27 mg/dL (8.4-25.7); Bilirubin, Direct 5.2 mg/dL (0.1-0.3); Bilirubin, Total 6.8 mg/dL (0.2-1.2); Calc. Creatinine Clearance 104 mL/min (70-130); Calcium 9.5 mg/dL (7.8-10.44); Carbon Dioxide 23 mmol/L (23-31); Chloride 99 mmol/L (98-107); Estimated GFR-MDRD Greater than 90; Glucose 91 mg/dL (80-115); Magnesium 1.6 mg/dL (1.6-2.6); Potassium 4.5 mmol/L (3.5-5.1); Protein, Total 5.9 g/dL (5.8-8.1); Sodium 130 mmol/L (136-145)
[2020-02-04] MEDS: predniSONE 20 MG TAB PO SCH (07:49)
[2020-02-04] MEDS: Metoprolol Tartrate 50 MG TAB PO SCH ×2 (07:52→20:23)
--- NOTE | 2020-02-04 09:42 | PRG ---
DATE OF SERVICE: 02/04/2020 SUBJECTIVE: Sabino Salinas this morning is still coughing some blood. He does have chest pain, coughing, and low-grade fever. OBJECTIVE: VITAL SIGNS: Temperature 97, pulse 63, respiratory rate 20, and blood pressure 123/65. CHEST: Bilateral rhonchi and crackles. CARDIAC: Normal S1 and S2. No gallops. ABDOMEN: Soft. LABORATORY DATA: White count 17,000. Sodium 130. Bilirubin is 6.8, direct is 5.2, AST is elevated. IMPRESSION: 1. Abnormal LFT. 2. Metastatic liver cancer. 3. Left lower lung mass. PLAN: Pain relief. Antitussive medication. P.o. antibiotics. Prognosis is guarded. Job ID: [id number]
[2020-02-04] MEDS ORDERED: Benzonatate 100 MG CAP PO SCH (10:00)
[2020-02-04] MEDS: Sodium Chloride 0.9% 1,000 ML IV SCH ×2 (10:18→21:37)
[2020-02-04] MEDS: Doxycycline 100 MG CAP PO SCH ×2 (10:19→20:22)
--- NOTE | 2020-02-04 10:35 | PDOC.HOSPP ---
- Subjective Encounter Date: 02/04/20 Encounter Time: 12:10 Subjective: Patient with persistent abdominal distension and pain. Trying to eat a little bit right now. - Objective Vital Signs & Weight: Vital Signs (12 hours) Temp Pulse Resp Pulse Ox 02/04/20 07:08 97.2 F L 02/04/20 07:06 63 20 10 L 02/04/20 03:29 97.9 F 02/03/20 23:22 97.6 F Weight Weight 190 lb 0.615 oz Most Recent Monitor Data Heart Rate from ECG 61 NIBP 123/65 NIBP BP-Mean 84 Respiration from ECG 21 SpO2 100 I&O: 02/03/20 02/04/20 02/05/20 06:59 06:59 06:59 Intake Total 5264 Output Total 1075 Balance 4189 Result Diagrams: 02/04/20 03:35 02/04/20 03:35 Hospitalist ROS - Review of Systems Constitutional: denies: fever, chills Respiratory: denies: cough, shortness of breath Cardiovascular: denies: chest pain, palpitations Gastrointestinal: reports: abdominal pain. denies: nausea, vomiting - Medication Medications: Active Medications Generic Name Dose Route Start Last Admin Trade Name Freq PRN Reason Stop Dose Admin Albuterol/Ipratropium 3 ml 02/02/20 19:38 02/03/20 10:34 Duoneb NEB 3 ml [id number] PRN Administration SOB &/or Wheezing Albuterol/Ipratropium 3 ml 02/03/20 18:30 02/04/20 07:06 Duoneb NEB 3 ml BID-RT JOVI Administration Benzonatate 100 mg 02/03/20 03:26 02/03/20 03:59 Tessalon PO 100 mg TID PRN Administration Cough Benzonatate 100 mg 02/04/20 10:00 02/04/20 10:19 Tessalon PO 02/04/20 12:00 100 mg NOW JOVI Administration Doxycycline Hyclate 100 mg 02/04/20 09:00 02/04/20 10:19 Vibramycin PO 100 mg BID JOVI Administration Fentanyl 25 mcg 02/02/20 19:38 02/03/20 04:59 Sublimaze SLOW IVP 25 mcg Q2H PRN Administration Moderate to Severe Pain (6-10) Fentanyl 50 mcg 02/02/20 19:38 02/04/20 10:20 Sublimaze SLOW IVP 50 mcg Q2H PRN Administration Severe Pain (7-10) Sodium Chloride 1,000 mls @ 100 mls/hr 02/02/20 19:45 02/04/20 10:18 Normal Saline 0.9% IV 1,000 mls .Q10H JOVI Administration Amiodarone HCl 450 mg/ 259 mls @ 0 mls/hr 02/02/20 20:15 02/03/20 22:00 Dextrose/Water IVPB 259 mls INF JOVI Administration Protocol Per Protocol Lactulose 20 gm 02/02/20 21:00 02/04/20 07:52 Lactulose PO 20 gm BID JOVI Administration Metoprolol Tartrate 50 mg 02/02/20 21:00 02/04/20 07:52 Lopressor PO 50 mg BID JOVI Administration Prednisone 20 mg 02/04/20 08:00 02/04/20 07:49 Prednisone PO 20 mg QAM-WM JOVI Administration Sodium Chloride 10 ml 02/02/20 21:00 02/04/20 10:20 Flush - Normal Saline IVF 10 ml Q12HR JOVI Administration - Exam General Appearance: NAD, awake alert Eye: scleral icterus ENT: moist mucosa Heart: RRR, no murmur, no gallops, no rubs Respiratory: CTAB, no wheezes, no rales, no ronchi Gastrointestinal: normal bowel sounds, distended Gastrointestinal - other findings: TTP worse RUQ Psychiatric: normal affect, normal behavior, A&O x 3 Hosp A/P (1) Squamous cell carcinoma of lung, stage IV Code(s): C34.90 - MALIGNANT NEOPLASM OF UNSP PART OF UNSP BRONCHUS OR LUNG Status: Acute (2) Metastasis to liver Code(s): C78.7 - SECONDARY MALIG NEOPLASM OF LIVER AND INTRAHEPATIC BILE DUCT Status: Acute (3) Elevated LFTs Code(s): R94.5 - ABNORMAL RESULTS OF LIVER FUNCTION STUDIES Status: Acute (4) Atrial fibrillation with RVR Code(s): I48.91 - UNSPECIFIED ATRIAL FIBRILLATION Status: Acute (5) Hyperkalemia Code(s): E87.5 - HYPERKALEMIA Status: Acute (6) Hyponatremia Code(s): E87.1 - HYPO-OSMOLALITY AND HYPONATREMIA Status: Acute (7) Leukocytosis Code(s): D72.829 - ELEVATED WHITE BLOOD CELL COUNT, UNSPECIFIED Status: Acute (8) Pneumonia Code(s): J18.9 - PNEUMONIA, UNSPECIFIED ORGANISM Status: Acute - Plan CT abdomen confirming metastatic disease as source of LFT elevation Poor prognosis on antibiotics Await Heme/Onc recs. Palliative care consult.
[2020-02-04 12:14] VITALS: BMI 25.7
[2020-02-04] MEDS ORDERED: D5W-AA 4.25% with LYTES 1,000 ML BAG IV SCH (12:45)
[2020-02-04] MEDS: Benzonatate 100 MG CAP PO SCH ×2 (14:50→20:22)
[2020-02-04] MEDS: Amiodarone 450 MG in Dextrose 5% in Water 250 ML IVPB SCH (14:52)
[2020-02-04] MEDS: Morphine IR Tab 15 MG TAB PO PRN ×2 (16:48→21:20)
[2020-02-05] MEDS: Morphine IR Tab 15 MG TAB PO PRN ×2 (01:15→05:21)
[2020-02-05 03:48] LABS: Band 4 % (5-11); Hemoglobin 11.6 g/dL (14.0-18.0); Lymphocytes 6 % (21-51); MDiff Complete? YES; Mean Corpuscular HGB CONC 32.7 g/dL (32.0-36.0); Mean Corpuscular Hemoglobin 34.7 pg (27.0-31.0); Mean Platelet Volume 8.5 fL (7.4-10.4); Monocytes 7 % (0-10); Neutrophil 83 % (42-75); Platelet Count 278 thou/uL (130-400); Platelet Morphology Comment Appears Adequate; Red Blood Cell (RBC) Count 3.35 mill/uL (4.70-6.10); White Blood Cell (WBC) Count 22.1 thou/uL (4.8-10.8)
[2020-02-05] MEDS: Fentanyl 100 MCG/2 ML VIAL SLOW IVP PRN ×4 (04:12→21:56)
[2020-02-05] MEDS: Doxycycline 100 MG CAP PO SCH ×2 (07:31→21:57)
[2020-02-05] MEDS: Benzonatate 100 MG CAP PO SCH ×3 (07:31→21:57)
[2020-02-05] MEDS: Metoprolol Tartrate 50 MG TAB PO SCH ×2 (07:32→21:57)
[2020-02-05] MEDS: predniSONE 20 MG TAB PO SCH (07:32)
[2020-02-05] MEDS: Amiodarone 450 MG in Dextrose 5% in Water 250 ML IVPB SCH (07:33)
[2020-02-05] MEDS: Sodium Chloride 0.9% 1,000 ML IV SCH ×2 (07:37→17:45)
[2020-02-05] MEDS: HYDROcodone/Acetaminophen 5/325 mg Tablet PO PRN ×2 (09:03→23:12)
--- NOTE | 2020-02-05 09:31 | PRG ---
DATE OF SERVICE: 02/05/2020 SUBJECTIVE: This morning, he is awake, alert, and responsive. Denies any pain or discomfort. He is going to go home with hospice. He has extensive metastatic adenocarcinoma to the liver. Pulmonary maya, hemoptysis is better. OBJECTIVE: VITAL SIGNS: Temperature 98, pulse 102, respirations 21, blood pressure 110/59. CHEST: Decreased breath sounds. No wheezing. CARDIAC: Normal S1, S2. No gallops. ABDOMEN: No masses. LABORATORY DATA: White blood cell count 20,000. ASSESSMENT AND PLAN: Squamous cell carcinoma with recurrent hemoptysis, metastatic; hyponatremia. Agree with hospice, comfort care. Job ID: [id number]
--- NOTE | 2020-02-05 09:42 | PDOC.HOSPP ---
- Subjective Encounter Date: 02/05/20 Encounter Time: 10:30 Subjective: Patient agitated overnight after Morphine given. Urinary retention requiring lovett catheter. Getting hydrocodone and Fentanyl as needed. Family wants to go home on hospice. Spoke with patient and and he stated he just wanted us to "let him go." Will change to DNAR. in agreement. - Objective Vital Signs & Weight: Vital Signs (12 hours) Temp Pulse Resp Pulse Ox 02/05/20 08:07 98 02/05/20 08:05 102 H 21 H 99 02/05/20 07:50 100 02/05/20 07:26 98.4 F 02/05/20 04:00 97.9 F Weight Admit Weight 181 lb 14.102 oz Weight 190 lb 0.615 oz Most Recent Monitor Data Heart Rate from ECG 77 NIBP 110/59 NIBP BP-Mean 76 Respiration from ECG 15 SpO2 99 I&O: 02/04/20 02/05/20 02/06/20 06:59 06:59 06:59 Intake Total 5230 3984 Output Total 1075 1300 Balance 4187 3851 Result Diagrams: 02/05/20 03:20 02/04/20 03:35 Hospitalist ROS - Review of Systems ROS unobtainable: due to mental status - Medication Medications: Active Medications Generic Name Dose Route Start Last Admin Trade Name Freq PRN Reason Stop Dose Admin Hydrocodone Bitart/Acetaminophen 1 tab 02/04/20 12:38 02/05/20 09:03 [place] 5/325 PO 1 tab Q4H PRN Administration Moderate to Severe Pain (6-10) Albuterol/Ipratropium 3 ml 02/02/20 19:38 02/03/20 10:34 Duoneb NEB 3 ml [id number] PRN Administration SOB &/or Wheezing Albuterol/Ipratropium 3 ml 02/03/20 18:30 02/05/20 08:05 Duoneb NEB 3 ml BID-RT JOVI Administration Benzonatate 100 mg 02/03/20 03:26 02/03/20 03:59 Tessalon PO 100 mg TID PRN Administration Cough Benzonatate 100 mg 02/04/20 15:00 02/05/20 07:31 Tessalon PO 100 mg TID JOVI Administration Doxycycline Hyclate 100 mg 02/04/20 09:00 02/05/20 07:31 Vibramycin PO 100 mg BID JOVI Administration Fentanyl 25 mcg 02/02/20 19:38 02/03/20 04:59 Sublimaze SLOW IVP 25 mcg Q2H PRN Administration Moderate to Severe Pain (6-10) Fentanyl 50 mcg 02/02/20 19:38 02/05/20 07:32 Sublimaze SLOW IVP 50 mcg Q2H PRN Administration Severe Pain (7-10) Sodium Chloride 1,000 mls @ 100 mls/hr 02/02/20 19:45 02/05/20 07:37 Normal Saline 0.9% IV 1,000 mls .Q10H JOVI Administration Amiodarone HCl 450 mg/ 259 mls @ 0 mls/hr 02/02/20 20:15 02/05/20 07:33 Dextrose/Water IVPB 259 mls INF JOVI Administration Protocol Per Protocol Lactulose 20 gm 02/02/20 21:00 02/05/20 07:36 Lactulose PO Not Given BID JOVI Metoprolol Tartrate 50 mg 02/02/20 21:00 02/05/20 07:32 Lopressor PO 50 mg BID JOVI Administration Morphine Sulfate 15 mg 02/04/20 15:18 02/05/20 05:21 Morphine Ir Tab PO 15 mg Q4H PRN Administration Breakthrough Pain Prednisone 20 mg 02/04/20 08:00 02/05/20 07:32 Prednisone PO 20 mg QAM-WM JOVI Administration Sodium Chloride 10 ml 02/02/20 21:00 02/05/20 07:36 Flush - Normal Saline IVF 10 ml Q12HR JOVI Administration - Exam General Appearance: NAD, awake alert Eye: scleral icterus ENT: moist mucosa Heart: RRR, no murmur, no gallops, no rubs Respiratory: CTAB, no wheezes, no rales, no ronchi Gastrointestinal: normal bowel sounds, tender to palpation, distended Psychiatric - other findings: mildly agitated, redirectable, oriented to person and place, not year Hosp A/P (1) Squamous cell carcinoma of lung, stage IV Code(s): C34.90 - MALIGNANT NEOPLASM OF UNSP PART OF UNSP BRONCHUS OR LUNG Status: Acute (2) Metastasis to liver Code(s): C78.7 - SECONDARY MALIG NEOPLASM OF LIVER AND INTRAHEPATIC BILE DUCT Status: Acute (3) Elevated LFTs Code(s): R94.5 - ABNORMAL RESULTS OF LIVER FUNCTION STUDIES Status: Acute (4) Atrial fibrillation with RVR Code(s): I48.91 - UNSPECIFIED ATRIAL FIBRILLATION Status: Acute (5) Hyperkalemia Code(s): E87.5 - HYPERKALEMIA Status: Acute (6) Hyponatremia Code(s): E87.1 - HYPO-OSMOLALITY AND HYPONATREMIA Status: Acute (7) Leukocytosis Code(s): D72.829 - ELEVATED WHITE BLOOD CELL COUNT, UNSPECIFIED Status: Acute (8) Pneumonia Code(s): J18.9 - PNEUMONIA, UNSPECIFIED ORGANISM Status: Acute (9) Urinary retention Code(s): R33.9 - RETENTION OF URINE, UNSPECIFIED Status: Acute - Plan CT abdomen confirming metastatic disease as source of LFT elevation Poor prognosis on antibiotics lovett placed for urinary retention DNAR Patient desiring to transition to hospice care. Palliative care and hospice consults for today. Home once home hospice set up.
[2020-02-05] MEDS ORDERED: Digoxin 0.5 MG/2 ML AMP SLOW IVP SCH (09:45)
[2020-02-05] MEDS: Lorazepam 2 MG/ML VIAL SLOW IVP PRN ×3 (10:58→23:56)
--- NOTE | 2020-02-05 14:10 | PQF ---
CLINICAL DOCUMENTATION IMPROVEMENT CLARIFICATION FORM: ICD-10 Updated PLEASE DO AN ADDENDUM TO THE PROGRESS NOTE WITH ANY DOCUMENTATION UPDATES OR ADDITIONS AND CARRY THROUGH TO DC SUMMARY. THANK YOU. DATE: 02/05/20 ATTN: DR. FAYE Please exercise your independent, professional judgment in responding to the clarification form. Clinical indicators are provided on the bottom of this form for your review Please check appropriate box(es): [ X ] Sepsis due to: (Pna, UTI, gangrenous gall bladder, etc.) ___PNA [ ] SIRS due to non-infectious process (please specify etiology) [ ] with organ dysfunction [ ] without organ dysfunction [ ] Localized infection without sepsis [ ] Other diagnosis [ ] Unable to determine In addition, please specify: Present on Admission (POA): [ X ] Yes [ ] No [ ] Unable to determine For continuity of documentation, please document condition throughout progress notes and discharge summary. Thank You. CLINICAL INDICATORS - SIGNS / SYMPTOMS / LABS / RESULTS AND LOCATION IN MR ER NOTE: "SEPSIS" WBC 02/01: 21.7 LACTIC ACID 02/01: 2.7 - 3.0 PULSE 115-180 RR 26 RISKS: PNEUMONIA (H&P 02/01) LUNG CA (H&P 02/01) CURRENT IMMUNOTHERAPY (H&P 02/01) TREATMENT: IV FLUIDS (02/01-PRESENT) VIBRAMYCIN (02/03-PRESENT) URINE AND BLOOD CULTURES (02/01-02/02) (This form is maintained as a part of the permanent medical record) 2014 [employer] All Rights Reserved [email or web address] [email or web address] Office: [phone] [facility]
--- NOTE | 2020-02-05 14:24 | PQF ---
CLINICAL DOCUMENTATION IMPROVEMENT CLARIFICATION FORM: ICD-10 Updated PLEASE DO AN ADDENDUM TO THE PROGRESS NOTE WITH ANY DOCUMENTATION UPDATES OR ADDITIONS AND CARRY THROUGH TO DC SUMMARY. THANK YOU. Date: 02/05/20 ATTN: DR. FAYE Please exercise your independent, professional judgment in responding to the clarification form. Clinical indicators are provided on the bottom of this form for your review Please check appropriate box(s): [ X ] Protein Calorie Malnutrition: [ ] Mild [ ] Moderate [ X ] Severe [ ] Other Malnutrition (please specify) __ [ ] Underweight without malnutrition [ ] Cachexia [ ] Other diagnosis [ ] Unable to determine In addition, please specify: Present on Admission (POA): [ X ] Yes [ ] No [ ] Unable to determine CLINICAL INDICATORS - SIGNS / SYMPTOMS / LABS / RESULTS AND LOCATION IN MR DIETARY ASSESSMENT 02/03: "HE DOES NOTE HAVE AN APPETITE, DOES NOTE REMEMBER THE LAST TIME HE WAS ABLE TO EAT NORMALLY." "7.2% WEIGHT LOSS FROM UBW" ALBUMIN 02/01: 2.8 BMI 25.8 RISKS: LUNG CA WITH LIVER METS (H&P 02/01) IMMUNOCOMPROMISED (H&P 02/01) TREATMENT: DIETARY CONSULT (02/03) NUTRITIONAL SUPPLEMENTS CONSIDERATION OF APPETITE STIMULANT (DIETARY ASSESSMENT 02/03) RECOMMENDATION OF PPN (PER DIETARY NOTE 02/03) PALLIATIVE CARE CONSULT 02/03 Moderate Malnutrition (in acute illness) Energy Intake: <75% of estimated energy requirement for > 7 days Weight Loss: 1-2%/1 week; 5%/ 1 month; 7.5%/3 months Other: mild body fat loss; mild muscle mass loss; mild fluid accumulation; Severe Malnutrition (in acute illness) 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 [employer] Winform ViewerEnergy Intake: < 50% of estimated energy requirement for > 5 days Weight Loss: >1-2%/1 week; >5%/1 month; >7.5%/3 months Other: moderate body fat loss; moderate muscle mass loss; moderate- severe fluid accumulation; measurably reduced credit or loans officer strength Moderate Malnutrition (in chronic illness) Energy Intake: <75% of estimated energy requirement for >1 month Weight Loss: 5%/1 month; 7.5%/3 months; 10%/6 months; 20%/1 year Other: mild body fat loss; mild muscle mass loss; mild fluid accumulation Severe Malnutrition (in chronic illness) Energy Intake: <75% of estimated energy requirement for >1 month Weight Loss: >5%/1 month; >7.5%/3 months; >10%/6 months; >20%/1 year Other: severe body fat loss; severe muscle mass loss; severe fluid accumulation ; measurably reduced credit or loans officer strength (This form is maintained as a part of the permanent medical record) 2014 [email or web address]. All Rights Reserved [email or web address] Office: [phone] [facility]
[2020-02-06] MEDS ORDERED: Metoprolol Tartrate 5 MG/5 ML VIAL IVP PRN (01:19)
[2020-02-06] MEDS: Fentanyl 100 MCG/2 ML VIAL SLOW IVP PRN ×3 (02:06→11:58)
[2020-02-06 04:03] VITALS: TEMP 97.7
[2020-02-06 05:21] LABS: Hemoglobin 11.9 g/dL (14.0-18.0); Hypochromia SLIGHT = 6-15 cells (100X) (0-5/hpf); Lymphocytes 2 % (21-51); MDiff Complete? YES; Macrocytosis SLIGHT = 6-15 cells (100X) (0-5/hpf); Mean Corpuscular Hemoglobin 34.3 pg (27.0-31.0); Mean Platelet Volume 8.7 fL (7.4-10.4); Monocytes 7 % (0-10); Neutrophil 91 % (42-75); Nucleated RBC 1 % (0); Platelet Count 209 thou/uL (130-400); Platelet Morphology Comment Appears Adequate; RBC Distribution Width 18.7 % (11.5-14.5); Red Blood Cell (RBC) Count 3.47 mill/uL (4.70-6.10); White Blood Cell (WBC) Count 23.4 thou/uL (4.8-10.8)
[2020-02-06] MEDS: Sodium Chloride 0.9% 1,000 ML IV SCH (05:53)
[2020-02-06 06:07] VITALS: BP 108/80
[2020-02-06] MEDS: Lorazepam 2 MG/ML VIAL SLOW IVP PRN ×2 (08:36→14:10)
[2020-02-06] MEDS: Metoprolol Tartrate 50 MG TAB PO SCH (08:43)
[2020-02-06] MEDS: Benzonatate 100 MG CAP PO SCH (08:44)
[2020-02-06] MEDS: predniSONE 20 MG TAB PO SCH (08:44)
[2020-02-06] MEDS: Doxycycline 100 MG CAP PO SCH (08:44)
--- NOTE | 2020-02-06 08:55 | PRG ---
DATE OF SERVICE: 02/06/2020 SUBJECTIVE: Sabino Salinas is a 65-year-old gentleman, this morning, still short of breath, still having significant pain. OBJECTIVE: VITAL SIGNS: Temperature 97%, saturations are 96% on room air, blood pressure _120\76, pulse 140, atrial fibrillation, and respiratory rate 24. CHEST: Reveals decreased breath sounds. No wheezing. CARDIAC: SVT. ABDOMEN: Soft. LABORATORY DATA: White count 23,000. ASSESSMENT: 1. 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 2. liver mets. 3. Supraventricular tachycardia. PLAN: Comfort care. Hospice inpatient is being arranged. We will follow. Job ID: [id number] MTDD
[2020-02-06] MEDS ORDERED: Digoxin 0.125 MG TAB PO SCH (09:00)
--- NOTE | 2020-02-06 10:33 | PDOC.HOSPP ---
- Subjective Encounter Date: 02/06/20 Encounter Time: 12:00 Subjective: Patient a bit less agitated with the ativan. Very confused. Just dosed off to sleep after dose of Fentanyl. Has had atrial tachycardias on and off. Family at bedside. Ready to take home on hospice. - Objective Vital Signs & Weight: Vital Signs (12 hours) Temp Pulse BP Pulse Ox 02/06/20 08:44 80 02/06/20 07:36 97 02/06/20 05:47 108/80 02/06/20 04:02 97.7 F 02/06/20 02:03 114/83 02/05/20 23:40 99.4 F Weight Admit Weight 181 lb 14.102 oz Weight 190 lb 0.615 oz Most Recent Monitor Data Heart Rate from ECG 91 NIBP 120/77 NIBP BP-Mean 91 Respiration from ECG 25 SpO2 99 I&O: 02/05/20 02/06/20 02/07/20 06:59 06:59 06:59 Intake Total 3984 2908 Output Total 1300 575 Balance 0031 0192 Result Diagrams: 02/06/20 04:35 02/04/20 03:35 Hospitalist ROS - Review of Systems ROS unobtainable: due to mental status - Medication Medications: Active Medications Generic Name Dose Route Start Last Admin Trade Name Freq PRN Reason Stop Dose Admin Hydrocodone Bitart/Acetaminophen 1 tab 02/04/20 12:38 02/05/20 23:12 [place] 5/325 PO 1 tab Q4H PRN Administration Moderate to Severe Pain (6-10) Albuterol/Ipratropium 3 ml 02/02/20 19:38 02/03/20 10:34 Duoneb NEB 3 ml [id number] PRN Administration SOB &/or Wheezing Albuterol/Ipratropium 3 ml 02/03/20 18:30 02/06/20 07:52 Duoneb NEB Not Given BID-RT JOVI Benzonatate 100 mg 02/03/20 03:26 02/03/20 03:59 Tessalon PO 100 mg TID PRN Administration Cough Benzonatate 100 mg 02/04/20 15:00 02/06/20 08:44 Tessalon PO Not Given TID JOVI Digoxin 0.125 mg 02/06/20 09:00 02/06/20 08:44 Lanoxin PO Not Given DAILY [facility] Doxycycline Hyclate 100 mg 02/04/20 09:00 02/06/20 08:44 Vibramycin PO Not Given BID [facility] Fentanyl 25 mcg 02/02/20 19:38 02/03/20 04:59 Sublimaze SLOW IVP 25 mcg Q2H PRN Administration Moderate to Severe Pain (6-10) Fentanyl 50 mcg 02/02/20 19:38 02/06/20 04:29 Sublimaze SLOW IVP 50 mcg Q2H PRN Administration Severe Pain (7-10) Sodium Chloride 1,000 mls @ 100 mls/hr 02/02/20 19:45 02/06/20 05:53 Normal Saline 0.9% IV 1,000 mls .Q10H JOVI Administration Lactulose 20 gm 02/02/20 21:00 02/06/20 08:44 Lactulose PO Not Given BID [facility] Lorazepam 0.5 mg 02/05/20 10:42 02/06/20 08:36 Ativan SLOW IVP 0.5 mg Q6H PRN Administration Anxiety/Agitation Metoprolol Tartrate 50 mg 02/02/20 21:00 02/06/20 08:43 Lopressor PO Not Given BID [facility] Metoprolol Tartrate 5 mg 02/06/20 01:19 02/06/20 02:04 Lopressor IVP 02/07/20 01:20 5 mg ONE PRN Administration afib with rvr Morphine Sulfate 15 mg 02/04/20 15:18 02/05/20 05:21 Morphine Ir Tab PO 15 mg Q4H PRN Administration Breakthrough Pain Prednisone 20 mg 02/04/20 08:00 02/06/20 08:44 Prednisone PO Not Given QAM-WM [facility] Sodium Chloride 10 ml 02/02/20 21:00 02/06/20 08:43 Flush - Normal Saline IVF 10 ml Q12HR JOVI Administration - Exam General Appearance: ill appearing General - other findings: somnolent currently Eye: scleral icterus ENT: moist mucosa Heart: no murmur, no gallops, no rubs Heart - other findings: regular, tachycardic in 130s right now Respiratory: CTAB, no wheezes, no rales, no ronchi Gastrointestinal: normal bowel sounds, tender to palpation, distended Psychiatric: somnolent Hosp A/P (1) Squamous cell carcinoma of lung, stage IV Code(s): C34.90 - MALIGNANT NEOPLASM OF UNSP PART OF UNSP BRONCHUS OR LUNG Status: Acute (2) Metastasis to liver Code(s): C78.7 - SECONDARY MALIG NEOPLASM OF LIVER AND INTRAHEPATIC BILE DUCT Status: Acute (3) Elevated LFTs Code(s): R94.5 - ABNORMAL RESULTS OF LIVER FUNCTION STUDIES Status: Acute (4) Atrial fibrillation with RVR Code(s): I48.91 - UNSPECIFIED ATRIAL FIBRILLATION Status: Acute (5) Hyperkalemia Code(s): E87.5 - HYPERKALEMIA Status: Acute (6) Hyponatremia Code(s): E87.1 - HYPO-OSMOLALITY AND HYPONATREMIA Status: Acute (7) Leukocytosis Code(s): D72.829 - ELEVATED WHITE BLOOD CELL COUNT, UNSPECIFIED Status: Acute (8) Pneumonia Code(s): J18.9 - PNEUMONIA, UNSPECIFIED ORGANISM Status: Acute (9) Urinary retention Code(s): R33.9 - RETENTION OF URINE, UNSPECIFIED Status: Acute - Plan CT abdomen confirming metastatic disease as source of LFT elevation Poor prognosis on antibiotics lovett placed for urinary retention DNAR Home with hospice today.
--- NOTE | 2020-02-06 19:55 | DIS ---
DATE OF ADMISSION: 02/02/2020 DATE OF DISCHARGE: 02/06/2020 REASON FOR ADMISSION: Extreme fatigue and pneumonia and known lung cancer. DIAGNOSES AT DISCHARGE: 1. Squamous cell lung cancer stage IV with metastases to liver. 2. Liver failure secondary to #1. 3. Pneumonia. 4. Atrial fibrillation with rapid ventricular rate. 5. Hyperkalemia. 6. Hyponatremia. 7. Urinary retention. 8. Leukocytosis. PROCEDURES: 1. Abdominal ultrasound showing enlargement of the liver. 2. Abdominal CT showing multiple metastatic lesions throughout the liver. 3. Echocardiogram showing ejection fraction 55% to 60% and grade 1/3 diastolic dysfunction. CONSULTATIONS: 1. Cardiology, Dr. Ortiz. 2. Pulmonology, Dr. York. 3. Nephrology, Dr. Rahman. 4. Hem/Oncology, Dr. Ybarra. SUMMARY OF HOSPITAL COURSE: This is a 65-year-old male with a known history of squamous cell lung cancer, last chemotherapy 3 weeks ago, followed by Dr. Ybarra, who came in with extreme fatigue. He was found to have pneumonia a couple of days ago. He was given some IV antibiotics and discharged home. He had no significant improvement, so he returned here. The patient was found to be jaundiced. He had liver failure. He had atrial fibrillation and evidence of pneumonia. He was put on antibiotics. He had a CT done that showed extensive spread of the cancer through his liver causing the liver failure. Dr. Ybarra was consulted and discussed his prognosis with the patient and the patient and family determined that he would go on hospice. The patient did decline during hospitalization, became more and more confused and somewhat agitated. His pain was able to be controlled with IV pain medicines and his agitation with IV Ativan and once the hospice was set up, we are sending him home on hospice today. DISCHARGE MANAGEMENT: Discharged home with home hospice. ACTIVITY: As tolerated. DIET: No restrictions. MEDICATIONS: As per the home hospice agency. Job ID: [id number]
--- NOTE | 2020-02-07 06:49 | PQF ---
MICHAEL FOURNIER RYAN ANDREW MD [id number] [facility]- [id number] CLINICAL DOCUMENTATION CLARIFICATION FORM: POST DISCHARGE Addendum to original discharge summary date: ____ Late entry note date: __ DATE:02/07/2020 ATTN: Danilo Pisano Please exercise your independent, professional judgment in responding to the clarification form. Clinical indicators are provided on the bottom of this form for your review In your clinical opinion based on clinical findings below, can you please further specify acuity of Liver Failure if: Please check appropriate box(s): [ X ] Acute [ ] Chronic [ ] Acute on Chronic [ ] Other diagnosis [ ] Unable to determine In addition, please specify: Present on Admission (POA): [ X ] Yes [ ] No [ ] Unable to determine For continuity of documentation, please document condition throughout progress notes and discharge summary. Thank You. CLINICAL INDICATORS - SIGNS / SYMPTOMS / LABS Laboratory 02/01 Total Bilirubin 6.0, Direct Bilirubin 5.2, AST 226; 240, ALT 138; 145, Alkaline Phosphatase 825; 771, Albumin 2.5; 2.8,Globulin 3.3, Ratio 0.8 Vital signs BP 113/66, Pulse 115, Temp 97.6, Resp 22 Ultrasound 02/01 Impression Enlarge liver of 23cm, suspicious for underlying cirrhosis or possibly hepatic metastasis disease H&P p1 02/01 Dr Castro He states that he was tired of feeling so fatigued and today that he culd not get up and down. He also reports frequent voiding with dark urine H&P p2 02/01 Dr Castro PE: Abdomen: Tenderness to palpation throughout H&P p2 02/01 Dr Castro Elevated liver function tests with abnormal ultrasound and question of cirrhosis and possibly metastasis Discharge summary p1 02/05 The patient was found to be jaundiced. He has liver failure secondary to Squamous cell jm cancer stage IV with metastases to liver RISK FACTORS H&P p1 02/01 65-year-old Male H&P p1 02/01 Lung Cancer H&P p1 02/01 History of Lymphoma in remission H&P p1 02/01 Hyponatremia H&P p1 02/01 Hypokalemia H&P p2 02/01 Hypoalbuminemia DS p1 02/05 Liver metastasis TREATMENTS: JAN 28 Lactulose 20gm po JAN 27 IVF NS 1L JAN 28 IV Albumin 25gm JAN 28 IV Azithromycin 200mg JAN 28 IV Ceftriaxone 1gm Ultrasound ordered 02/01 Repeat Liver function test 02/03 Oncology Consult Aidan Ybarra (This form is maintained as a part of the permanent medical record) 2014 [employer]. All Rights Reserved [email or web address]
== END 2020-02-06 14:22 | disposition hospice, home (50) | DRG 871 ==
LOC: ERS 16:05 → IMCU/EMU 18:20
PROVIDERS: ADMIT Family Medicine; ATTEND Family Medicine
PROC: 0T9B70Z Drainage of Bladder with Drainage Device, Via Natural or Artificial Opening (ICD-10-PCS; principal; 2020-02-05)
DX: A41.9 Sepsis, unspecified organism (principal); E43 Unspecified severe protein-calorie malnutrition; J18.9 Pneumonia, unspecified organism; Z66 Do not resuscitate; Z51.5 Encounter for palliative care; K72.00 Acute and subacute hepatic failure without coma; E87.1 Hypo-osmolality and hyponatremia; J44.0 Chronic obstructive pulmonary disease with (acute) lower respiratory infection; E87.2 Acidosis; C78.7 Secondary malignant neoplasm of liver and intrahepatic bile duct; I47.1 Supraventricular tachycardia; C34.32 Malignant neoplasm of lower lobe, left bronchus or lung; E87.5 Hyperkalemia; I48.0 Paroxysmal atrial fibrillation; K59.00 Constipation, unspecified; E86.1 Hypovolemia; R33.9 Retention of urine, unspecified; Z68.25 Body mass index [BMI] 25.0-25.9, adult; Z85.72 Personal history of non-Hodgkin lymphomas; Z87.891 Personal history of nicotine dependence; Z79.899 Other long term (current) drug therapy
CPT/HCPCS: 36415; 71045; 74170; 76705; 80048; 80053; 80076; 81015; 82550; 82553; 83605; 83735; 83930; 83935; 84100; 84300; 84484; 85025; 87040; 87086; 93005; 93010; 93306; 94640; J0282; J0456; J0696; J1160; J2060; J3010; J3475; J3490; J7050; J7070; J7512; J7620; P9047